=== PATIENT | female | born 1965 | race Caucasian/White ===

== ENCOUNTER 2016-09-14 13:47 | Inpatient (IN) | payer MEDICAID ==
[~2016-09-14] VITALS: Ht 172.7 cm; Wt 167.8 kg
[2016-09-14] MEDS ORDERED: ACETAMINOPHEN325 MG PO (14:07)
[2016-09-14] MEDS ORDERED: IBUPROFEN600 MG PO (14:07)
[2016-09-14] MEDS ORDERED: VENTOLIN HFA18 GM INH (14:07)
[2016-09-14 14:32] VITALS: BP 143/67; BMI 57.0
[2016-09-14 14:55] LABS: BASOPHILS 0.4 % (0.0-2.0); EOSINOPHILS 0.9 % (0-7); HEMATOCRIT 38.6 % (36.0-48.0); IMMATURE GRANULOCYTES 0.4 % (0-5); LYMPHOCYTES 17.9 % (15-50); MCH 28.8 pg (26.0-34.0); MCHC 31.1 g/dL (31.0-37.0); MCV 92.6 fL (80.0-100.0); NEUTROPHILS 69.4 % (40-80); PLATELET COUNT 268 10x3/uL (130-400); RBC 4.17 10x6/uL (4.00-5.40); RDW 15.1 % (11.5-14.5); WBC 8.1 10x3/uL (4.8-10.8)
[2016-09-14 15:09] LABS: CALC OSMOLALITY 271 mosm/kg (275-300); CALCIUM 8.6 mg/dL (8.5-10.1); CARBON DIOXIDE 30.4 mmol/L (21.0-32.0); CHLORIDE - SERUM 98 mmol/L (98-107); CREATININE - SERUM 0.7 mg/dL (0.6-1.3); GLUCOSE 106 mg/dL (74-106); POTASSIUM - SERUM 3.9 mmol/L (3.5-5.1); SODIUM 137 mmol/L (136-145); UREA NITROGEN 8 mg/dL (7-18); eGFR NON AFRICAN AMERICAN > 90 mL/min (90-120)
[2016-09-14 16:01] VITALS: BP 141/65
[2016-09-14 20:00] VITALS: BP 127/79
--- NOTE | 2016-09-14 23:38 | NUR ---
CIRCUIT BREAKER MECHANIC AT BEDSIDE FOR VS, NEEDS ADDRESSED AT THIS TIME. CALL LIGHT IN REACH. CONT TO MONITOR.
[2016-09-15] VITALS: BP 128/72
[2016-09-15 04:00] VITALS: BP 103/61
[2016-09-15 05:32] LABS: BASOPHILS 0.2 % (0.0-2.0); EOSINOPHILS 0 % (0-7); HEMATOCRIT 39.2 % (36.0-48.0); HEMOGLOBIN 12.3 g/dL (12-16); IMMATURE GRANULOCYTES 0.5 % (0-5); LYMPHOCYTES 13.7 % (15-50); MCH 28.9 pg (26.0-34.0); MCHC 31.4 g/dL (31.0-37.0); MEAN PLATELET VOLUME 10.2 fL (7.4-10.4); MONOCYTES 5.2 % (2-11); NEUTROPHILS 80.4 % (40-80); PLATELET COUNT 268 10x3/uL (130-400); RBC 4.26 10x6/uL (4.00-5.40); RDW 14.7 % (11.5-14.5)
[2016-09-15 06:05] LABS: WBC 5.8 10x3/uL (4.8-10.8)
[2016-09-15 06:06] LABS: CALC OSMOLALITY 280 mosm/kg (275-300); CALCIUM 9.1 mg/dL (8.5-10.1); CARBON DIOXIDE 30.4 mmol/L (21.0-32.0); CHLORIDE - SERUM 100 mmol/L (98-107); CREATININE - SERUM 0.7 mg/dL (0.6-1.3); GLUCOSE 144 mg/dL (74-106); MAGNESIUM - SERUM 2.3 mg/dL (1.8-2.4); PHOSPHOROUS 4.5 mg/dL (2.5-4.9); POTASSIUM - SERUM 4.2 mmol/L (3.5-5.1); PRO BNP 200 pg/mL (0-125); SODIUM 139 mmol/L (136-145); eGFR NON AFRICAN AMERICAN > 90 mL/min (90-120)
[2016-09-15 06:08] LABS: UREA NITROGEN 13 mg/dL (7-18)
[2016-09-15 07:52] VITALS: BP 122/57
--- NOTE | 2016-09-15 08:15 | NUR ---
received pt report. no other needs at this time. will continue plan of care no other needs.
[2016-09-15 11:34] VITALS: BP 114/52
--- NOTE | 2016-09-15 13:34 | NUR ---
PT IS ALERT. ASSESSMENT DONE PER FLOWSHEET. NO OTHER NEEDS AT THIS TIME. WILL CONTINUE TO MONITOR.
[2016-09-15 16:05] VITALS: BP 124/51
--- NOTE | 2016-09-15 19:40 | NUR ---
ASSESSMENT COMPLETE, A&O, SITTING UP ON SIDE OF BED, PT IV TO RIGHT AC WITH NS INFUSING AT KVO. PT DENIES PAIN OR NEEDS, BED LOW. CL IN REACH.
[2016-09-15 20:00] VITALS: BP 118/73
--- NOTE | 2016-09-15 20:43 | NUR ---
HS MEDS GIVEN, DENIES PAIN OR NEEDS, BED LOW, CL IN REACH.
--- NOTE | 2016-09-15 21:50 | NUR ---
PAGE OUT TO BIRGIT GREGG APN, WET PROCESS MILLER HEAD ASSISTANT FOR DR DUTTON, TO NOTIFY THAT PT IS C/O OF ITCHING AND REDNESS AFTER RECIEVEING ABX. CEFTAPIME.
--- NOTE | 2016-09-15 21:58 | NUR ---
SPOKE WITH MIGUEL GREGG, BENADRYL 25 ORDERED TO BE GIVEN IV Q6 PRN ITCHING, AND TO NOTIFY DR VALENTE OF REACTION WELL. PAGE OUT TO DR VALENTE.
--- NOTE | 2016-09-15 22:28 | NUR ---
BENADRYL 25 MG GIVEN IV FOR C/O ITCHING, HS SNACK GIVEN AT PT REQUEST. WILL CONT TO MONITOR.
--- NOTE | 2016-09-15 23:44 | NUR ---
CALL MANAGER AT BEDSIDE FOR VS, NEEDS ADDRESSED. CALL LIGHT IN REACH.CONT TO MONITOR.
[2016-09-16] VITALS: BP 132/69
[2016-09-16 04:00] VITALS: BP 132/78
[2016-09-16 05:01] LABS: BASOPHILS 0 % (0.0-2.0); EOSINOPHILS 0 % (0-7); HEMATOCRIT 39.8 % (36.0-48.0); HEMOGLOBIN 12.3 g/dL (12-16); IMMATURE GRANULOCYTES 0.3 % (0-5); LYMPHOCYTES 10.2 % (15-50); MCH 28.6 pg (26.0-34.0); MCHC 30.9 g/dL (31.0-37.0); MCV 92.6 fL (80.0-100.0); MEAN PLATELET VOLUME 10.3 fL (7.4-10.4); MONOCYTES 5.7 % (2-11); NEUTROPHILS 83.8 % (40-80); RDW 14.9 % (11.5-14.5)
[2016-09-16 05:42] LABS: CALCIUM 8.9 mg/dL (8.5-10.1); CARBON DIOXIDE 30.2 mmol/L (21.0-32.0); POTASSIUM - SERUM 4.2 mmol/L (3.5-5.1)
[2016-09-16 05:43] LABS: PLATELET COUNT 331 10x3/uL (130-400)
[2016-09-16 05:45] LABS: CREATININE - SERUM 0.9 mg/dL (0.6-1.3)
[2016-09-16 08:00] VITALS: BP 117/66
[2016-09-16 10:18] LABS: IMMUNOGLOBULIN E 594 IU/mL (0-100)
--- NOTE | 2016-09-16 11:59 | NUR ---
Patient Name: JUANPABLO AMEZCUA Admission Status: Urgent Accout number: [id number] Admission Date: 09-14-2016 : 1965 Admission Diagnosis: Attending: ANH Current LOS: 2 Anticipated DC Date: Planned Disposition: Home Primary Insurance: MEDICAID [place] Discharge Planning Comments: * Is the patient Alert and Oriented? Yes 0 * How many steps to enter\exit or inside your home? 3 0 * PCP DR. DUTTON 0 * [facility] [address] 0 * Preadmission Environment Home with Family 0 * ADLs Independent 0 * Equipment Nebulizer 0 * Other Equipment NO MEDICAL EQUIPMENT PROVIDER PREFERENCE 0 * List name and contact numbers for known caregivers / representatives who currently or will assist patient after discharge: SHI RODRIGUEZ, MOTHER, 0 * Community resources currently utilized None 0 * Please name any agencies selected above. NONE 0 * Additional services required to return to the preadmission environment? No 0 * Can the patient safely return to the preadmission environment? Yes 0 * Has this patient been hospitalized within the prior 30 days at any hospital? No 0 CM MET WITH PT IN ROOM TO DISCUSS DISCHARGE PLANNING AND NEEDS. PT REPORTS LIVING AT HOME INDEPENDENTLY WITH HER MOTHER AND ADULT CHILD. 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 PT HAS A NEBULIZER WITH NO MEDICAL EQUIPMENT PROVIDER PREFERENCE. PT HAS NO OUTSIDE SERVICES ASSISTING IN THE HOME. CM DISCUSSED AVAILABILITY OF HOME HEALTH, REHAB SERVICES AND MEDICAL EQUIPMENT. PT DENIES DISCHARGE NEEDS, REPORTS HER MOTHER WILL PICK HER UP FOR DISCHARGE HOME. PT PLANS TO DISCHARGE HOME WITH FAMILY, DENIES DISCHARGE NEEDS AT THIS TIME. CM TO FOLLOW AND ASSIST NEEDED. Binder Cutter Hand: Moses Menon
[2016-09-16 12:00] VITALS: BP 139/68
[2016-09-16 13:14] LABS: IMMUNOGLOBULIN A 233 mg/dL (87-352); IMMUNOGLOBULIN G 1562 mg/dL (700-1600)
[2016-09-16 16:00] VITALS: BP 118/58
--- NOTE | 2016-09-16 16:21 | NUR ---
ALERT AND ORIENTED X4. COMPLAINS OF ARTHRITIS PAIN. INITIATE PAIN MANAGEMENT WITH MOTRIN ORDERED. FAMILY AT BEDSIDE. DENIES SOB. IV ANTIBIOTICS INFUSING ORDERED. SINUS TACH 101bpm ON TELEMETRY. CONTINUE PLAN OF CARE AND SAFETY PRECAUTIONS.
--- NOTE | 2016-09-16 20:52 | NUR ---
HS MEDS GIVEN, DENIES PAIN OR NEEDS, BED LOW, CL IN REACH.
[2016-09-16 21:56] VITALS: BP 118/76
--- NOTE | 2016-09-17 00:12 | NUR ---
MANAGER MATERIAL AT BEDSIDE TO OBTAIN VITALS, CALL LIGHT IN REACH. WILL CONTINUE WITH PLAN OF CARE.
[2016-09-17 01:17] VITALS: BP 128/63
[2016-09-17 04:59] LABS: BASOPHILS 0.2 % (0.0-2.0); EOSINOPHILS 0 % (0-7); HEMATOCRIT 39.5 % (36.0-48.0); IMMATURE GRANULOCYTES 0.3 % (0-5); LYMPHOCYTES 12.5 % (15-50); MCH 28.3 pg (26.0-34.0); MCHC 30.4 g/dL (31.0-37.0); MCV 93.2 fL (80.0-100.0); MEAN PLATELET VOLUME 10.1 fL (7.4-10.4); MONOCYTES 5.6 % (2-11); NEUTROPHILS 81.4 % (40-80); PLATELET COUNT 308 10x3/uL (130-400); RBC 4.24 10x6/uL (4.00-5.40)
[2016-09-17 05:07] LABS: WBC 6.6 10x3/uL (4.8-10.8)
[2016-09-17 05:09] LABS: ANION GAP 8.4 mmol/L (8-16); CALCIUM 8.4 mg/dL (8.5-10.1); CREATININE - SERUM 0.9 mg/dL (0.6-1.3); MAGNESIUM - SERUM 2.2 mg/dL (1.8-2.4); PHOSPHOROUS 4.7 mg/dL (2.5-4.9); POTASSIUM - SERUM 4.4 mmol/L (3.5-5.1)
[2016-09-17 05:11] VITALS: BP 147/66
--- NOTE | 2016-09-17 06:53 | NUR ---
IV TO RIGHT AC LEAKING, IV CATH REMOVED, TIP INTACT. COVERED INSERTION SITE WITH 2X2 AND TAPE.
[2016-09-17 07:39] VITALS: BP 121/63
--- NOTE | 2016-09-17 07:50 | NUR ---
PATIENT IS AWAKE AND ALERT. SHE IS SITTING UPRIGHT IN HER BED. HER IV HAS BEEN REMOVED DUE TO LEAKING. SHE HAS NURSING STUDENTS TODAY AND SHE WANTS TO REPLACE WHEN INSTRUCTER IS AVAILABLE TO ASSIST. PATIENT IS OK WITH THIS.
--- NOTE | 2016-09-17 09:30 | NUR ---
22G IV PLACED IN LEFT FA ON 2ND ATTEMPT. PT TOLERATED WELL. PIPERACILLIN RECONNECTED TO INFUSE AT 12.5ML/HR. WILL HOLD VANCOMYCIN UNTIL CURRENT INFUSION IS COMPLETE.
[2016-09-17 12:11] VITALS: BP 130/75
--- NOTE | 2016-09-17 19:45 | NUR ---
INTRODUCED MYSELF TO PT PRIMARY RN FOR [facility]. PT IS ALERT AND ORIENTED RESTING QUIETLY IN BED. SHIFT ASSESSMENT COMPLETED. PT DENIES ANY CURRENT NEEDS AT THIS TIME. CL IN REACH, BED IN LOWEST, SIDE RAILS X2. WILL CPOC AND PULL MEDS FOR NIGHTLY MED PASS SHORTLY.
--- NOTE | 2016-09-17 19:48 | NUR ---
PATIENT HAS BEEN WITHOUT COMPLAINTS OF PAIN THROUGHOUT THE DAY. SHE HAS RED RASH UNDER EACH BREAST. SHE STATES THAT SHE HAS NOT HAD A SHOWER IN 6 DAYS. SHE HAS BEEN DOING A BASIN CLEAN UP. ENCOURAGED HER TO BATHE. SHE STATE SHTAT SHE WILL AFTER HER ABTS ARE COMPLETED. REPORTED THIS TO ONCOMING NURSE.
[2016-09-17 20:00] VITALS: BP 111/63
[2016-09-18] VITALS: BP 108/63
--- NOTE | 2016-09-18 00:52 | NUR ---
PT RESTING QUIETLY IN ROOM WATCHING TV. DENIES ANY CURREN PAIN OR NEEDS. CL IN REACH. WILL CPOC.
[2016-09-18 04:00] VITALS: BP 139/85
[2016-09-18 06:20] LABS: BASOPHILS 0.2 % (0.0-2.0); EOSINOPHILS 0 % (0-7); HEMATOCRIT 40.9 % (36.0-48.0); HEMOGLOBIN 12.5 g/dL (12-16); IMMATURE GRANULOCYTES 0.3 % (0-5); LYMPHOCYTES 18.2 % (15-50); MCH 28.5 pg (26.0-34.0); MCHC 30.6 g/dL (31.0-37.0); MCV 93.2 fL (80.0-100.0); MEAN PLATELET VOLUME 9.7 fL (7.4-10.4); NEUTROPHILS 73.3 % (40-80); PLATELET COUNT 303 10x3/uL (130-400); RBC 4.39 10x6/uL (4.00-5.40); RDW 14.9 % (11.5-14.5); WBC 6.3 10x3/uL (4.8-10.8)
[2016-09-18 06:33] LABS: CALCIUM 8.9 mg/dL (8.5-10.1); CARBON DIOXIDE 34.8 mmol/L (21.0-32.0); CREATININE - SERUM 0.9 mg/dL (0.6-1.3); POTASSIUM - SERUM 3.8 mmol/L (3.5-5.1)
[2016-09-18 08:07] VITALS: BP 139/65
--- NOTE | 2016-09-18 10:46 | NUR ---
UP IN CHAIR, DENIES NEEDS AT THIS TIME. CALL LIGHT IN REACH, WILL CONTINUE WITH PLAN OF CARE.
[2016-09-18 11:23] VITALS: BP 114/53
--- NOTE | 2016-09-18 14:49 | NUR ---
SCHEDULED MEDICATIONS ADMINISTERED AT THIS TIME. DENIES NEEDS AT THIS TIME. CALL LIGHT IN REACH, WILL CONTINUE WITH PLAN OF CARE.
[2016-09-18 15:59] VITALS: BP 131/63
--- NOTE | 2016-09-18 16:53 | NUR ---
SCHEDULED MEDICATIONS ADMINISTERED AT THIS TIME. DENIES NEEDS AT THIS TIME. EATING DINNER WITHOUT DIFFICULTY. CALL LIGHT IN REACH, WILL CONTINUE WITH PLAN OF CARE.
--- NOTE | 2016-09-18 20:00 | NUR ---
INTRODUCED MYSELF TO PT PRIMARY RN FOR [facility]. PT IS ALERT AND ORIENTED RESTING QUIETLY IN BED. SHIFT ASSESSMENT COMPLETED. PT DENIES ANY CURRENT NEEDS AT THIS TIME. CL IN REACH, BED IN LOWEST, SIDE RAILS X2. WILL CPOC AND PULL MEDS FOR NIGHTLY MED PASS SHORTLY.
[2016-09-18 20:31] VITALS: BP 123/79
[2016-09-19 00:15] VITALS: BP 135/68
--- NOTE | 2016-09-19 01:30 | NUR ---
PT LYING BACK IN BED RESTING QUIETLY WITH EYES CLOSED. RR NONLABORED WITH NC @3L IN PLACE. NO S/S OF DISTRESS OR ANY CURRENT NEEDS NOTED AT THIS TIME. CL IN REACH, BED IN LOWEST, SIDE RAILS X2. WILL CTM.
[2016-09-19 04:30] VITALS: BP 126/75
[2016-09-19 05:45] LABS: BASOPHILS 0.1 % (0.0-2.0); EOSINOPHILS 0 % (0-7); HEMATOCRIT 39.7 % (36.0-48.0); IMMATURE GRANULOCYTES 0.5 % (0-5); LYMPHOCYTES 17.4 % (15-50); MCH 28.4 pg (26.0-34.0); MCHC 30.2 g/dL (31.0-37.0); MCV 93.9 fL (80.0-100.0); MONOCYTES 6.3 % (2-11); NEUTROPHILS 75.7 % (40-80); PLATELET COUNT 300 10x3/uL (130-400); RBC 4.23 10x6/uL (4.00-5.40); RDW 14.8 % (11.5-14.5)
--- NOTE | 2016-09-19 06:25 | NUR ---
PROVIDED PT WITH A CUP OF COFFEE REQUESTED. ALONG WITH GLOBE CLEANER SCHEDULED MEDICATIONS. PT IS SITTING UP IN BED RESTING AND STATES SHE IS COMFORTABLE. L.FA PIV NOTED TO BE SLIGHTLY TENDER HOWEVER IV HAS GREAT BLOOD RETURN AND ISNT INFILTRATED. PT PREFERS NOT TO HAVE A NEW ONE UNLESS THAT ONE INFILTRATES. PT DENIES ANY FURTHER NEEDS AT THIS TIME. CL IN REACH, BED IN LOWEST, SIDE RAILS X2. WILL CPOC.
[2016-09-19 06:38] LABS: CALC OSMOLALITY 275 mosm/kg (275-300); CALCIUM 8.9 mg/dL (8.5-10.1); CARBON DIOXIDE 33.1 mmol/L (21.0-32.0); CHLORIDE - SERUM 96 mmol/L (98-107); CREATININE - SERUM 0.8 mg/dL (0.6-1.3); GLUCOSE 128 mg/dL (74-106); POTASSIUM - SERUM 4.1 mmol/L (3.5-5.1); SODIUM 136 mmol/L (136-145); UREA NITROGEN 19 mg/dL (7-18); eGFR NON AFRICAN AMERICAN 80 mL/min (90-120)
--- NOTE | 2016-09-19 07:10 | NUR ---
RECEIVED REPORT. ASSUMED CARE OF PATIENT. CALL LIGHT WITHIN REACH. PATIENT SITTING UP IN BED. STUDENT NURSE AT BEDSIDE. PATIENT DENIES NEEDS AT THIS TIME. RESP EVEN AND UNLABORED. SCATTER WHEEZES THROUGHT POSTERIOR LUNG WONG. DENIES NEEDS AT THIS TIME. NO DISTRESS.
[2016-09-19 07:55] VITALS: BP 129/75
--- NOTE | 2016-09-19 08:53 | NUR ---
22 GAUGE IV SITED TO RIGHT HAND X 1 STICK AT THIS TIME. GOOD BLOOD RETURN, EASY FLUSH. LAB AT BEDSIDE. BLOOD NEEDED FOR LAB ABLE TO BE DRAWN FROM IV SITE. TAPED, DATED AND SECURED. PATIENT RECEIVING ANTIBIOTICS AT THIS TIME. TOLERATED IV PLACEMENT WELL. 22 GAUGE DISLODGED FROM LEFT FOREARM PATIENT MOVED ARM ACROSS BED. CATHETER TIP IN TACT. NO BLEEDING FROM SITE. 2X2 GAUZE APPLIED AND SECURED WITH TAPE. NO DISTRESS.
--- NOTE | 2016-09-19 11:30 | NUR ---
PATIENT SITTING UP IN BED CONSUMING NOON MEAL. CALL LIGHT WITHIN REACH. DENIES NEEDS AT THIS TIME. NO DISTRESS.
[2016-09-19 11:47] VITALS: BP 135/81
[2016-09-19 15:30] VITALS: BP 141/71
--- NOTE | 2016-09-19 15:53 | NUR ---
RESTING WELL IN BED WITH EYES OPEN. APPLE JUICE PROVIDED UPON REQUEST. NO DISTRESS. CALL LIGHT WITHIN REACH.
--- NOTE | 2016-09-19 19:00 | NUR ---
REPORT GIVEN TO ONCOMING NURSE. NO DISTRESS.
[2016-09-19 20:26] VITALS: BP 126/67
--- NOTE | 2016-09-20 00:15 | NUR ---
CHANGED OUT FEEDING TUBE
[2016-09-20 00:35] VITALS: BP 139/72
--- NOTE | 2016-09-20 02:17 | NUR ---
ASSESSMENT COMPLETE, PT SLEEPING, CALL LIGHT IN REACH
[2016-09-20 04:17] VITALS: BP 135/79
[2016-09-20 05:05] LABS: BASOPHILS 0.1 % (0.0-2.0); EOSINOPHILS 0 % (0-7); HEMATOCRIT 40.3 % (36.0-48.0); HEMOGLOBIN 12.3 g/dL (12-16); IMMATURE GRANULOCYTES 0.5 % (0-5); MCH 28.5 pg (26.0-34.0); MCHC 30.5 g/dL (31.0-37.0); MCV 93.3 fL (80.0-100.0); MEAN PLATELET VOLUME 9.9 fL (7.4-10.4); MONOCYTES 4.3 % (2-11); NEUTROPHILS 80.1 % (40-80); PLATELET COUNT 306 10x3/uL (130-400); RBC 4.32 10x6/uL (4.00-5.40); RDW 14.6 % (11.5-14.5)
[2016-09-20 05:23] LABS: ANION GAP 7.1 mmol/L (8-16); CALCIUM 9.2 mg/dL (8.5-10.1); CARBON DIOXIDE 36.3 mmol/L (21.0-32.0); CREATININE - SERUM 0.9 mg/dL (0.6-1.3); POTASSIUM - SERUM 4.4 mmol/L (3.5-5.1)
--- NOTE | 2016-09-20 07:05 | NUR ---
RECEIVED REPORT. ASSUMED CARE OF PATIENT. PATIENT SITTING UP IN BED. ALERT/ORIENTED. RESP EVEN AND UNLABORED. CALL LIGHT WITHIN REACH. REQUESTING COFFEE AT THIS TIME. IV ANTIBIOTICS INFUSING. NO DISTRESS.
--- NOTE | 2016-09-20 07:20 | NUR ---
COFFEE PROVIDED UPON REQUEST. NO DISTRESS.
[2016-09-20 07:41] VITALS: BP 135/58
--- NOTE | 2016-09-20 10:00 | NUR ---
PATIENT SITTING UP IN BED. DENIES NEEDS. CALL LIGHT WITHIN REACH. NO DISTRESS.
[2016-09-20 11:39] VITALS: BP 145/74
--- NOTE | 2016-09-20 14:58 | NUR ---
ALL IV TUBING CHANGED AT THIS TIME. NEW LABELS AND SWAB CAPS INTACT.
[2016-09-20 15:21] VITALS: BP 138/72
--- NOTE | 2016-09-20 16:28 | NUR ---
SITTING IN BED. NEWSPAPER PROVIDED. DENIES NEEDS AT THIS TIME. NO DISTRESS.
--- NOTE | 2016-09-20 18:05 | NUR ---
PATIENT SITTING UP IN BED WITH ATTENTION TOWARD TELEVISION. CALL LIGHT WITHIN REACH. DENIES NEEDS AT THIS TIME. NO DISTRESS.
[2016-09-20 20:30] VITALS: BP 117/64
--- NOTE | 2016-09-20 20:57 | NUR ---
PT AWAKE, ALERT, ORIENTED. PT DENIES ANY ACUTE NEEDS AT THIS TIME. WILL CONTINUE TO MONITOR CLOSELY.
[2016-09-21 00:30] VITALS: BP 128/62
[2016-09-21 04:45] VITALS: BP 118/60
[2016-09-21 06:37] LABS: ERYTHROCYTE SEDIMENTATION RATE 18 mm/hr (0-30)
--- NOTE | 2016-09-21 07:47 | NUR ---
AM ROUNDING- PT LAYING IN BED ON BACK WITH EYES OPEN RESTING. ON MONITOR SHOWING SR, HR 81. IV SEEN TO RIGHT HAND WITH D5 1/2 NS RUNNING AT KVO (15). ON EP, WILL CHECK AM LABS AND CONTINUE TO TX PER PROTOCOL. ON O2 AT 3L VIA HUMIDIFIED O2. NO NEED AT CURRENT TIME. WILL CONTINUE TO MONITOR AND CONTINUE WITH PLAN OF CARE.
[2016-09-21 08:00] VITALS: BP 123/67
--- NOTE | 2016-09-21 10:45 | NUR ---
IV access-22 gauge IV catheter placed in left hand. Hue Burciaga RN
[2016-09-21 12:00] VITALS: BP 130/63
--- NOTE | 2016-09-21 14:15 | NUR ---
IN REPORT WINDOW CASER NURSE CARYN INFORMED ME OF PT HAVING REDNESS WHERE IV CATHETER IS. UPON DOING MORNING MEDICATION PASS, PTS IV SITE WAS RED AND PT C/O PAIN WITH I TOUCHED IT. CALLED SADIQ MEEKS, VASCULAR ACCESS NURSE TO SEE ABOUT RESITING PT. SADIQ SAID SHE WOULD BE ON UNIT SHORTLY TO LOOK. 1045- SADIQ MEEKS RESITED PT WITH 22G IV CATHETER TO LEFT HAND. IV ANTIBIOTICS STARTED ORDERED.
[2016-09-21 16:00] VITALS: BP 112/61
--- NOTE | 2016-09-21 19:19 | NUR ---
PM ROUNDING- PT SITTING UP IN BED WITH EYES OPEN RESTING. IV SEEN TO LEFT HAND WITH ANTIBIOTICS CURRENTLY INFUSING. ON 02 AT 3L VIA NC WITH HUMIDIFIER. ON EP. ON MONITOR SHOWING SR, HR 93. NO NEED AT CURRENT TIME. WILL PASS THIS ALONG IN REPORT TO SAFE DEPOSIT ATTENDANT NURSE WHEN NURSE COMES IN AT 1000.
[2016-09-21 20:00] VITALS: BP 113/76
[2016-09-22] VITALS: BP 130/77
--- NOTE | 2016-09-22 01:00 | NUR ---
REPORT RECEIVED AND CARE ASSUMED. NO VOICED NEEDS. SEE SHIFT ASSESSMENT FLOW SHEET FOR FURTHER DETAILS. WILL MONITOR AND CONTINUE PLAN OF CARE.
[2016-09-22 04:00] VITALS: BP 114/85
[2016-09-22 08:11] VITALS: BP 140/85
--- NOTE | 2016-09-22 11:06 | NUR ---
PT SITTING UP IN BED WITH EYES OPEN RESTING. ON MONITOR SHOWING SR, HR 92. IV SEEN TO RIGHT HAND THAT HAS ANTIBIOTICS CURRENTLY RUNNING. ON 02 AT 3L VIA NC WITH HUMIDIFIER. ON EP, WILL CHECK AM LABS AND TX PER PROTOCOL. PT IS UP AD CONRAD. PT STATES SHE GETS TO GO HOME TODAY. POWER MONIQUE, NATURAL RESOURCES ENGINEER IS DOING DAILY SHIFT ASSESSMENT. WILL DO CARE PLAN AND TEACHING. WILL CONTINUE TO MONITOR AND CONTINUE WITH PLAN OF CARE.
[2016-09-22 11:58] VITALS: BP 139/84
[2016-09-22] MEDS ORDERED: SINGULAIR10 MG PO (12:09)
[2016-09-22] MEDS ORDERED: CELEXA20 MG PO (12:09)
[2016-09-22] MEDS ORDERED: LASIX40 MG PO ×2 (12:09→12:11)
[2016-09-22] MEDS ORDERED: TESSALON PERLE100 MG PO (12:09)
[2016-09-22] MEDS ORDERED: MUCINEX DM ER1 EAC1 PO (12:09)
[2016-09-22] MEDS ORDERED: SYMBICORT 16010.2 GM INH (12:11)
[2016-09-22] MEDS ORDERED: K-DUR20 MEQ PO (12:11)
[2016-09-22] MEDS ORDERED: PREDNISONE10 MG PO (12:22)
--- NOTE | 2016-09-22 12:58 | NUR ---
TRES GREGG FIRST BEATER ON UNIT. GAVE ME NEW ORDERS TO PUT IN ABGS FOR PT ON ROOM AIR. WILL DO ORDERED.
[2016-09-22 13:11] VITALS: Ht 172.7 cm; Wt 167.8 kg
--- NOTE | 2016-09-22 13:37 | NUR ---
TURNED PTS 02 DOWN TO 2L VIA NC. PTS 02 SAT IS 90%. PT STATES SHE DOES NOT FEEL DISTRESSED. INFORMED TRES GREGG NP OF THIS. WILL CONTINUE TO MONITOR.
--- NOTE | 2016-09-22 13:44 | NUR ---
TRES GREGG NP STATED TO HAVE PT WALK AROUND NURSES STATION ON ROOM AIR AND THEN HAVE RESPIRATORY DO ABG ON PT AFTERWARDS. WILL CALL [facility] AND INFORM THEM OF THIS AND PUT ORDERS IN ORDERED BY TRES GREGG NP.
--- NOTE | 2016-09-22 13:48 | NUR ---
PAGEValentin AVILA WITH RESPIRATORY TO INFORM HER TO LET ME KNOW WHEN I NEED TO WALK PT AROUND NURSES STATION PRIOR TO HER DOING ABG ON PT ORDERED. AWAITNG CALLBACK.
--- NOTE | 2016-09-22 13:56 | NUR ---
WALKED PT AROUND NURSES STATION ON ROOM ORDERED. PT HAD SOME SOB DURING WALK. RESP IS IN ROOM NOW DOING ABG ON PT.
--- NOTE | 2016-09-22 15:05 | NUR ---
TWO OF THE DISCHARGE MEDICATIONS WERE CALLED TO SAI/ALISA ORTEZ NO PRINTED PRESCRIPTIONS WERE PROVIDED. SINGULAIR AND BENZONATATE WERE CALLED IN. SPOKE WITH CHACHO/PHARMACIST
--- NOTE | 2016-09-22 15:23 | NUR ---
D/C INSTRUCTONS EXPLAINED TO PT. D/C PAPERWORK SIGNED AND DATED AND PLACED IN CHART. IV TO LEFT HAND REMOVED WITH CATH TIP INTACT. TOLERATED WELL. AWAITING PT TO GET BELONGINGS TOGETHER AND MOTHER TO GET HERE TO TAKE HER HOME.
--- NOTE | 2016-09-22 15:45 | NUR ---
PT D/C VIA WHEELCHAIR HOME.
--- NOTE | 2016-10-06 08:17 | EC ---
PATIENT:JUANPABLO AMEZCUA DATE OF SERVICE: 09/14/16 SEX: F MEDICAL RECORD: [id number] DATE OF : [birth year] LOCATION:D. D.211 AGE OF PATIENT: 51 ADMISSION DATE: 09/14/16 REFERRING PHYSICIAN: INTERPRETING PHYSICIAN: QUAN SARMIENTO M.D. ECHOCARDIOGRAM REPORT ECHO CHARGES 4 ECHO COMPLETE CLINICAL DIAGNOSIS: SOB FAMILY HX OF CAD ECHOCARDIOGRAPHIC MEASUREMENTS (adult normal given) AC root (d.<3.7cm) 3.8 LV Septum d (<1.2 cm> 1.3 Valve Excursion 1.6 LV Septum (systole) 1.4 Left Atria (s.<4.0cm> 4.5 LVPW d(<1.2cm) 1.6 RV (d.<2.3cm) 3.2 LVPW (sytole) 2.2 LV diastole(<5.6CM) 6.2 MV E-F(>70mm/sec) LV systole 4.5 LVOT Diameter 1.8 MV exc.(>10mm) 1.9 Est.ejection fraction (50-75%) Pericardial Effusion N DOPPLER: LVIT A 81.0 E 103 LA RVSP 23 LVOT 143 AOP1/2T Asc. Ao 191 RVOT 110 RA PA 163 AV Gradient Peak 14.50 AV Mean 7.94 AV Area 2.0 MV Gradient Peak 8.42 MV Mean 2.72 MV Area COMMENTS: Resident Care Spec: Kimmie NULL Lithoplate Maker:2 Dr. Sarmiento TAPE# PACS DATE OF SERVICE: 09/15/2016 Echocardiogram Report REFERRING PHYSICIAN: Judy Kilpatrick MD INDICATION: Dyspnea. DESCRIPTION: Left ventricle demonstrates left ventricular hypertrophy. No wall motion abnormalities noted. Estimated ejection fraction is 55%. Mitral valve ECHOCARDIOGRAM REPORT [id number] JUANPABLO AMEZCUA is structurally normal. There is mild regurgitation seen. Left atrium is mildly dilated. The aortic valve leaflets are slightly thickened. There is no stenosis or regurgitation seen. Right ventricle is mildly dilated. Tricuspid valve is structurally normal. There is mild regurgitation noted. Right atrium is mildly dilated. There is no pericardial effusion seen. IMPRESSION: 1. Left ventricular hypertrophy with preserved ejection fraction of 55%. 2. Mild mitral regurgitation. 3. Aortic valve sclerosis without stenosis. 4. Mild tricuspid regurgitation. TRANSINT:[id number] Voice Confirmation ID: [id number] DOCUMENT ID: [id number] QUAN SARMIENTO M.D. at 0817 CC: [id number] DICTATION DATE: 09/15/16 1543 GATE ATTENDANT: 09/15/16 2304 DIS IN 09/22/16 [place] [id number] [place] [id number]
== END 2016-09-22 15:46 | disposition home or self-care (01) | DRG 194 ==
LOC: D.M2 13:47 → D.SDCHOLD 09-16 10:52 → D.M2 09-22 15:46
PROVIDERS: Emergency Medicine; Internal Medicine Pulmonary Disease; ADMIT Emergency Medicine
DX: J18.9 Pneumonia, unspecified organism (principal); J45.901 Unspecified asthma with (acute) exacerbation; I50.30 Unspecified diastolic (congestive) heart failure; I08.1 Rheumatic disorders of both mitral and tricuspid valves; R09.1 Pleurisy; Z87.891 Personal history of nicotine dependence

== ENCOUNTER 2016-10-15 09:20 | Inpatient (IN) | payer MEDICAID ==
[~2016-10-15] VITALS: Ht 172.7 cm; Wt 170.6 kg
[~2016-10-15 09:20] MED LIST: ACETAMINOPHEN325 MG PO; CELEXA20 MG PO; IBUPROFEN600 MG PO; K-DUR20 MEQ PO; LASIX40 MG PO; MUCINEX DM ER1 EAC1 PO; PREDNISONE10 MG PO; SINGULAIR10 MG PO; SYMBICORT 16010.2 GM INH; TESSALON PERLE100 MG PO; VENTOLIN HFA18 GM INH
[2016-10-15 10:40] LABS: APPEARANCE HAZY (CLEAR); BILIRUBIN NEGATIVE (NEGATIVE); COLOR DK YELLOW (YELLOW); GLUCOSE NEGATIVE (NEGATIVE); KETONE NEGATIVE (NEGATIVE); LEUKOCYTE ESTERASE TRACE (NEGATIVE); NITRITE NEGATIVE (NEGATIVE); PROTEIN 1+ mg/dL (NEGATIVE); SPECIFIC GRAVITY 1.015 (1.005-1.020); UROBILINOGEN NORMAL (NORMAL)
[2016-10-15 10:41] LABS: WHITE CELLS - URINE 0-5 /hpf (0-5)
[2016-10-15 10:42] LABS: BACTERIA MANY /hpf (NONE SEEN); EPITHELIAL CELLS OCC /hpf (0-5); MUCUS >1+ /lpf (NONE SEEN); RED CELLS - URINE 0-5 /hpf (0-5); SPERMATOZOA NONE SEEN /hpf (NONE SEEN); YEAST NONE SEEN /hpf (NONE SEEN)
[2016-10-15 10:43] LABS: AMORPHOUS SEDIMENT >1+ /lpf (NONE SEEN); GRANULAR CAST NONE SEEN /lpf (NONE SEEN); HYALINE CAST 0-5 /lpf (NONE SEEN); RED CELL CAST NONE SEEN /lpf (NONE SEEN); WAXY CAST NONE SEEN /lpf (NONE SEEN)
[2016-10-15 10:51] LABS: ALBUMIN 3.1 g/dL (3.4-5.0); ALKALINE PHOSPHATASE 65 U/L (46-116); ALT (SGPT) 28 U/L (10-68); BILIRUBIN - TOTAL 0.32 mg/dL (0.2-1.3); CALC OSMOLALITY 275 mosm/kg (275-300); CALCIUM 8.5 mg/dL (8.5-10.1); CARBON DIOXIDE 33.2 mmol/L (21.0-32.0); CHLORIDE - SERUM 100 mmol/L (98-107); CREATININE - SERUM 0.7 mg/dL (0.6-1.3); GLUCOSE 114 mg/dL (74-106); POTASSIUM - SERUM 4.4 mmol/L (3.5-5.1); PROTEIN - SERUM 7.4 g/dL (6.4-8.2); SODIUM 138 mmol/L (136-145); UREA NITROGEN 9 mg/dL (7-18); eGFR NON AFRICAN AMERICAN > 90 mL/min (90-120)
[2016-10-15 10:59] LABS: PRO BNP 515 pg/mL (0-125)
[2016-10-15 11:10] LABS: BASOPHILS 0.2 % (0.0-2.0); EOSINOPHILS 1.8 % (0-7); HEMATOCRIT 38.3 % (36.0-48.0); HEMOGLOBIN 11.5 g/dL (12-16); IMMATURE GRANULOCYTES 1.1 % (0-5); LYMPHOCYTES 21.5 % (15-50); MCV 93.4 fL (80.0-100.0); MEAN PLATELET VOLUME 9.8 fL (7.4-10.4); MONOCYTES 6.9 % (2-11); NEUTROPHILS 68.5 % (40-80); PLATELET COUNT 344 10x3/uL (130-400)
[2016-10-15] MEDS ORDERED: PHENERGAN25 M1 PO (14:58)
[2016-10-15] MEDS ORDERED: MACROBID100 MG PO (14:58)
[2016-10-15 15:05] VITALS: BP 126/63; BMI 58.0
--- NOTE | 2016-10-15 15:16 | NUR ---
PATIENT ARRIVED FROM ER VIA STRETCHER. SOB O2 ON AT 3 LITERS. ASSESSMENT DONE. 2+EDEMA ON JOE FEET. REDDENED AREAS NOTED UNDER EACH BREASTS. MONITOR ON WITH RATE OF 97 NSR. WILL CONTINUE TO MONITOR.
--- NOTE | 2016-10-15 19:02 | NUR ---
LYING QUIETLY WITH EYES CLOSED. TELEMERTY SHOWING SR. WILL MONITOR
--- NOTE | 2016-10-15 21:23 | NUR ---
PT REPORTS A HEADACHE, RATES @ 6/10 ON PAIN SCALE. TYLENOL 650 MG PO GIVEN. WILL CONT TO MONITOR.
[2016-10-15 21:33] VITALS: BP 127/53
[2016-10-16 01:06] VITALS: BP 125/66
[2016-10-16 05:24] VITALS: BP 116/59
[2016-10-16 05:39] LABS: BASOPHILS 0.3 % (0.0-2.0); EOSINOPHILS 2.9 % (0-7); HEMATOCRIT 39.1 % (36.0-48.0); HEMOGLOBIN 11.8 g/dL (12-16); IMMATURE GRANULOCYTES 0.6 % (0-5); MCHC 30.2 g/dL (31.0-37.0); MCV 92.9 fL (80.0-100.0); MEAN PLATELET VOLUME 9.9 fL (7.4-10.4); MONOCYTES 7.9 % (2-11); NEUTROPHILS 60.3 % (40-80); PLATELET COUNT 295 10x3/uL (130-400); RBC 4.21 10x6/uL (4.00-5.40); RDW 15.2 % (11.5-14.5)
[2016-10-16 05:58] LABS: ALBUMIN 2.9 g/dL (3.4-5.0); ALKALINE PHOSPHATASE 64 U/L (46-116); ALT (SGPT) 29 U/L (10-68); CALC OSMOLALITY 274 mosm/kg (275-300); CARBON DIOXIDE 33.7 mmol/L (21.0-32.0); CHLORIDE - SERUM 100 mmol/L (98-107); CREATININE - SERUM 0.8 mg/dL (0.6-1.3); GLUCOSE 117 mg/dL (74-106); PROTEIN - SERUM 7.1 g/dL (6.4-8.2); SODIUM 138 mmol/L (136-145); UREA NITROGEN 8 mg/dL (7-18); eGFR NON AFRICAN AMERICAN 80 mL/min (90-120)
[2016-10-16 05:59] LABS: POTASSIUM - SERUM 3.6 mmol/L (3.5-5.1)
--- NOTE | 2016-10-16 07:37 | NUR ---
ASSESSMENT COMPLETED. TELEMERTY SHOWS SR. RIGHT AC SL. C/O HEADACHE. TYLENOL GIVEN FOR RELIEF
--- NOTE | 2016-10-16 11:44 | NUR ---
C/O NAUSEA. ZOFRAN GIVEN. DENIES ANY OTHER NEEDS. SR UP WITH CALL LIGHT IN REACH
[2016-10-16 12:00] VITALS: BP 126/56
[2016-10-16 13:05] VITALS: Ht 172.7 cm; Wt 170.6 kg
[2016-10-16 16:00] VITALS: BP 122/60
--- NOTE | 2016-10-16 17:44 | NUR ---
UP ON SIDE OF BED. DENIES ANY NEEDS. CALL LIGHT IN REACH WITH SR UP
[2016-10-16 20:21] VITALS: BP 125/68
--- NOTE | 2016-10-16 21:57 | NUR ---
PT RESTING WITH EYES CLOSED. ROUSES UP TO VERBAL STIMULI. C/O HEADACHE. STATES FIOROCET GIVEN EARLIER DID NOT HELP BUT FOR A SHORT WHILE. HS MEDS GIVEN. LOVENOX ADMINISTERED TO ABDOMEN. MILD SOB WITH O2 @ 2L/NC. SALINE LOCK TO RIGHT A/C. SEE ASSESSMENT. CPOC. CALL LIGHT IN REACH.
[2016-10-17 00:31] VITALS: BP 125/59
--- NOTE | 2016-10-17 02:07 | NUR ---
RESTING IN BED WITH NO DISTRESS. EYES CLOSED. RESPS EVEN/NONLABORED. CPOC. CALL LIGHT IN REACH.
--- NOTE | 2016-10-17 03:14 | NUR ---
PT NAUSEATED AND C/O HEADACHE/UPSET STOMACH. MEDICATED WITH IV ZOFRAN. ALSO GAVE HER TYLENOL AND FIORECET FOR HER HEADACHE AND HER AM PROTONIX TO SEE IF IT WILL HELP SETTLE HER STOMACH. WILL MONITOR.
[2016-10-17 04:03] VITALS: BP 129/66
[2016-10-17 06:05] LABS: BASOPHILS 0.2 % (0.0-2.0); EOSINOPHILS 2.8 % (0-7); HEMOGLOBIN 11.2 g/dL (12-16); IMMATURE GRANULOCYTES 0.7 % (0-5); MCH 28.1 pg (26.0-34.0); MCHC 30.3 g/dL (31.0-37.0); MCV 92.7 fL (80.0-100.0); MEAN PLATELET VOLUME 9.6 fL (7.4-10.4); NEUTROPHILS 72.3 % (40-80); PLATELET COUNT 301 10x3/uL (130-400); RBC 3.99 10x6/uL (4.00-5.40); RDW 15.1 % (11.5-14.5); WBC 8.2 10x3/uL (4.8-10.8)
[2016-10-17 06:25] LABS: ALKALINE PHOSPHATASE 65 U/L (46-116); ALT (SGPT) 29 U/L (10-68); BILIRUBIN - TOTAL 0.29 mg/dL (0.2-1.3); CALC OSMOLALITY 269 mosm/kg (275-300); CALCIUM 8.7 mg/dL (8.5-10.1); CARBON DIOXIDE 32.3 mmol/L (21.0-32.0); CHLORIDE - SERUM 100 mmol/L (98-107); CREATININE - SERUM 0.7 mg/dL (0.6-1.3); GLUCOSE 111 mg/dL (74-106); PROTEIN - SERUM 6.8 g/dL (6.4-8.2); SODIUM 135 mmol/L (136-145); UREA NITROGEN 10 mg/dL (7-18); eGFR NON AFRICAN AMERICAN > 90 mL/min (90-120)
[2016-10-17 06:26] LABS: POTASSIUM - SERUM 4.7 mmol/L (3.5-5.1)
--- NOTE | 2016-10-17 07:58 | NUR ---
PT IS ALERT. ASSESSMENT DONE PER FLOWHSEET. NO OTHER NEEDS AT THIS TIME WILL CONTINUE TO MONITOR.
[2016-10-17 08:00] VITALS: BP 122/72
[2016-10-17 12:00] VITALS: BP 122/59
[2016-10-17 16:00] VITALS: BP 128/72
--- NOTE | 2016-10-17 20:10 | NUR ---
PT RESTING IN BED. ALERT/ORIENED. SR PER TELEMETRY. SALINE LOCK TO RIGHT A/C. ONGOING COMPLAINTS OF GLOBAL HEADACHE. ANI HUMMEL NOTES/NEW ORDERS FOR THE DAY. INDICATIONS ARE FOR PT TO CONTINUE TO USE THE FIORECET FOR HER HEADACHE. SEE ASSESSMENT. CALL LIGHT IN REACH.
[2016-10-17 20:38] VITALS: BP 137/73
[2016-10-18 00:11] VITALS: BP 151/60
[2016-10-18 04:40] VITALS: BP 177/78
[2016-10-18 05:58] LABS: BASOPHILS 0.1 % (0.0-2.0); EOSINOPHILS 3.3 % (0-7); HEMATOCRIT 37.8 % (36.0-48.0); HEMOGLOBIN 11.3 g/dL (12-16); IMMATURE GRANULOCYTES 0.7 % (0-5); LYMPHOCYTES 20.9 % (15-50); MCHC 29.9 g/dL (31.0-37.0); MCV 93.8 fL (80.0-100.0); MEAN PLATELET VOLUME 9.9 fL (7.4-10.4); PLATELET COUNT 312 10x3/uL (130-400); RBC 4.03 10x6/uL (4.00-5.40); RDW 15.3 % (11.5-14.5)
[2016-10-18 06:24] LABS: ALBUMIN 2.8 g/dL (3.4-5.0); ALKALINE PHOSPHATASE 64 U/L (46-116); ALT (SGPT) 33 U/L (10-68); CALC OSMOLALITY 277 mosm/kg (275-300); CALCIUM 8.9 mg/dL (8.5-10.1); CARBON DIOXIDE 36.3 mmol/L (21.0-32.0); CHLORIDE - SERUM 101 mmol/L (98-107); CREATININE - SERUM 0.6 mg/dL (0.6-1.3); GLUCOSE 103 mg/dL (74-106); POTASSIUM - SERUM 4.4 mmol/L (3.5-5.1); PROTEIN - SERUM 6.9 g/dL (6.4-8.2); SODIUM 140 mmol/L (136-145); UREA NITROGEN 9 mg/dL (7-18); eGFR NON AFRICAN AMERICAN > 90 mL/min (90-120)
--- NOTE | 2016-10-18 07:43 | NUR ---
PT IS ALERT. ASSESSMENT DONE PER FLOWSHEET. NO OTHER NEEDS AT THIS TIME. WILL CONTINUE SIVA ONITOR.
[2016-10-18 08:00] VITALS: BP 135/69
[2016-10-18 12:00] VITALS: BP 116/67
[2016-10-18 16:00] VITALS: BP 122/68
--- NOTE | 2016-10-18 18:00 | NUR ---
PT IS ALERT. NO SS OF DISTRESS AT THIS TIME. KARLA CONTINUE TOMNITOR.
--- NOTE | 2016-10-18 19:43 | NUR ---
RESUMED CARE OF PT, LYING IN BED RESPIRATIONS EVEN AND UNLABORED ON 2LPM VIA NC. 82 SR ON TELEMETRY. RIGHT AC SALINE LOCKED. COMPLAINS OF HEADACHE, WILL BRING FIORECIT. CALL LIGHT IN REACH. WILL CONTINUE TO MONITOR. SEE NURSE ASSESSMENT.
[2016-10-18 20:00] VITALS: BP 119/59
[2016-10-19 01:55] VITALS: BP 102/48
[2016-10-19 06:18] LABS: BASOPHILS 0.2 % (0.0-2.0); EOSINOPHILS 3.3 % (0-7); HEMATOCRIT 38.5 % (36.0-48.0); HEMOGLOBIN 11.4 g/dL (12-16); IMMATURE GRANULOCYTES 0.7 % (0-5); LYMPHOCYTES 22.7 % (15-50); MCH 27.9 pg (26.0-34.0); MCHC 29.6 g/dL (31.0-37.0); MCV 94.1 fL (80.0-100.0); MEAN PLATELET VOLUME 10.1 fL (7.4-10.4); MONOCYTES 5.2 % (2-11); NEUTROPHILS 67.9 % (40-80); PLATELET COUNT 303 10x3/uL (130-400); RBC 4.09 10x6/uL (4.00-5.40); RDW 15.4 % (11.5-14.5); WBC 8.1 10x3/uL (4.8-10.8)
--- NOTE | 2016-10-19 06:32 | NUR ---
20 GUAGE TO RIGHT HAND X 1 STICK.
[2016-10-19 06:38] VITALS: BP 139/72
[2016-10-19 06:53] LABS: ALBUMIN 2.8 g/dL (3.4-5.0); ALKALINE PHOSPHATASE 67 U/L (46-116); ALT (SGPT) 35 U/L (10-68); CALC OSMOLALITY 276 mosm/kg (275-300); CARBON DIOXIDE 36.9 mmol/L (21.0-32.0); CHLORIDE - SERUM 99 mmol/L (98-107); CREATININE - SERUM 0.7 mg/dL (0.6-1.3); GLUCOSE 98 mg/dL (74-106); POTASSIUM - SERUM 4.5 mmol/L (3.5-5.1); PROTEIN - SERUM 7.1 g/dL (6.4-8.2); SODIUM 139 mmol/L (136-145); UREA NITROGEN 10 mg/dL (7-18); eGFR NON AFRICAN AMERICAN > 90 mL/min (90-120)
--- NOTE | 2016-10-19 07:41 | NUR ---
ASSESSMENT COMPLETED. TELEMERTY SHOWS SR. 02 AT 2 L/M PER NC. RIGHT HAND SL. LYING QUIETLY. SR UP WITH CALL LIGHT IN REACH
--- NOTE | 2016-10-19 08:05 | NUR ---
AWAKE WAITING FOR PROCEDURE. NO DISTRESS NOTED. IV PATENT. WILL CONTINUE TO MONITOR.
[2016-10-19 08:32] VITALS: BP 113/67
--- NOTE | 2016-10-19 11:00 | NUR ---
LYING QUIETLY. NO NEEDS VOICED. VISITOR AT BEDSIDE.WILL MONITOR
[2016-10-19 12:12] LABS: ACLA - IGG AB <9 GPL U/mL (0-14); ACLA - IGM AB <9 MPL U/mL (0-12)
[2016-10-19 12:35] VITALS: BP 118/54
--- NOTE | 2016-10-19 13:54 | NUR ---
LYING QUIETLY WITH EYES CLOSED. NO NEEDS NOTED. CALL LIGHT IN REACH WITH SR UP
[2016-10-19 15:55] VITALS: BP 107/77
--- NOTE | 2016-10-19 18:10 | NUR ---
UP IN ROOM. DENIES ANY NEEDS. CALL LIGHT IN REACH WITH SR UP. WILL MONITOR
--- NOTE | 2016-10-19 20:01 | NUR ---
PT RESTING QUIETLY RESP UNLABORED PT DENIES ANY NEEDS OR DISCOMFORT AT THIS TIME NAD NOTED
[2016-10-19 21:37] VITALS: BP 108/48
--- NOTE | 2016-10-20 02:41 | NUR ---
ASSESSMENT COMPLETE, SLEEPING, BED IS LOW, SRX2, CALL LIGHT IN REACH, WILL CONTINUE TO MONITOR
[2016-10-20 05:44] LABS: BASOPHILS 0.2 % (0.0-2.0); EOSINOPHILS 3.3 % (0-7); HEMATOCRIT 39.3 % (36.0-48.0); HEMOGLOBIN 11.9 g/dL (12-16); IMMATURE GRANULOCYTES 0.6 % (0-5); LYMPHOCYTES 21.1 % (15-50); MCHC 30.3 g/dL (31.0-37.0); MCV 92.5 fL (80.0-100.0); MEAN PLATELET VOLUME 9.9 fL (7.4-10.4); MONOCYTES 4.1 % (2-11); NEUTROPHILS 70.7 % (40-80); PLATELET COUNT 312 10x3/uL (130-400); RBC 4.25 10x6/uL (4.00-5.40); RDW 15.6 % (11.5-14.5)
[2016-10-20 05:54] VITALS: BP 119/70
[2016-10-20 06:02] VITALS: BP 115/58
[2016-10-20 06:02] LABS: ALKALINE PHOSPHATASE 73 U/L (46-116); ALT (SGPT) 41 U/L (10-68); CALC OSMOLALITY 269 mosm/kg (275-300); CALCIUM 9.3 mg/dL (8.5-10.1); CARBON DIOXIDE 37.6 mmol/L (21.0-32.0); CHLORIDE - SERUM 98 mmol/L (98-107); CREATININE - SERUM 0.7 mg/dL (0.6-1.3); GLUCOSE 107 mg/dL (74-106); POTASSIUM - SERUM 4.2 mmol/L (3.5-5.1); PROTEIN - SERUM 7.3 g/dL (6.4-8.2); SODIUM 135 mmol/L (136-145); UREA NITROGEN 12 mg/dL (7-18); eGFR NON AFRICAN AMERICAN > 90 mL/min (90-120)
[2016-10-20 08:00] VITALS: BP 127/71
--- NOTE | 2016-10-20 08:04 | NUR ---
ASSESSMENT COMPLETED. TELEMERTY SHOWS SR AT 75. O2 AT 2 L/M PER NC. SL TO RIGHT HAND. UP AB CONRAD. CALL LIGHT IN REACH WITH SR UP
[2016-10-20 10:19] LABS: PROTEIN S - FREE 164 % (57-157); PROTEIN S - TOTAL 176 % (60-150)
--- NOTE | 2016-10-20 11:51 | NUR ---
Patient Name: JUANPABLO AMEZCUA Admission Status: ER Accout number: [id number] Admission Date: 10-15-2016 : 1965 Admission Diagnosis:SHORTNESS OF BREATH Attending: TALISHA Current LOS: 5 Anticipated DC Date: 10-20-2016 Planned Disposition: Home Primary Insurance: MEDICAID [place] Discharge Planning Comments: * Is the patient Alert and Oriented? Yes 0 * How many steps to enter\exit or inside your home? 3 0 * PCP DR. DUTTON 0 * Pharmacy [facility] [address] 0 * Preadmission Environment Home with Family 0 * ADLs Independent 0 * Equipment Nebulizer Oxygen 0 * Other Equipment OXYGEN AT NIGHT ONLY [facility] - MEDICAL EQUIPMENT PROVIDER 0 * List name and contact numbers for known caregivers / representatives who currently or will assist patient after discharge: SHI RODRIGUEZ, MOTHER, 0 * Community resources currently utilized None 0 * Please name any agencies selected above. NONE 0 * Additional services required to return to the preadmission environment? No 0 * Can the patient safely return to the preadmission environment? Yes 0 * Has this patient been hospitalized within the prior 30 days at any hospital? Yes 0 CM MET WITH PT IN ROOM TO DISCUSS DISCHARGE PLANNING AND NEEDS. PT REPORTS LIVING AT HOME INDEPENDENTLY WITH HER MOTHER AND PT'S ADULT CHILD. PT HAS NEBULIZER AND OXYGEN AT NIGHT FROM [facility]. PT HAS NO OUTSIDE SERVICES ASSISTING IN THE HOME. CM DISCUSSED AVAILABILITY OF HOME HEALTH, REHAB SERVICES AND MEDICAL EQUIPMENT. PT DENIES DISCHARGE NEEDS, REPORTS HER MOTHER WILL PICK HER UP FOR DISCHARGE HOME. PT WOULD LIKE HER PORTABLE OXYGEN FROM [facility]. CM SPOKE TO KENDRA GREGG WHO WILL ORDER ABG TESTING FOR HOME PORTABLE OXYGEN NEEDS. CM WILL ARRANGE PORTABLE OXYGEN FOR HOME USE WITH [facility] IF PT QUALIFIES WITH ABG TESTING TODAY FOR DISCHARGE HOME. Chain Builder Loom Control: Moses Menon
[2016-10-20 12:00] VITALS: BP 132/64
[2016-10-20] MEDS ORDERED: ELIQUIS5 MG PO ×2 (12:41→12:43)
[2016-10-20] MEDS ORDERED: ESGIC TABLET1 TAB PO (12:45)
[2016-10-20] MEDS ORDERED: SINGULAIR10 MG PO (12:45)
--- NOTE | 2016-10-20 13:12 | NUR ---
Nutrition follow-up: Diet: Low sodium PO intake 100% of last 6 meals Labs reviewed +BM Wt: 376# PO intake has improved at this time RDN following.
[2016-10-20 13:17] LABS: PROTEIN S - FREE 178 % (57-157); PROTEIN S - FUNCTIONAL 51 % (63-140); PROTEIN S - TOTAL 190 % (60-150)
[2016-10-20 14:23] LABS: PROTEIN C - ANTIGEN 106 % (60-150); PROTEIN C - FUNCTIONAL 154 % (73-180)
--- NOTE | 2016-10-20 14:38 | NUR ---
LYING QUIETLY. AWAITING DISCHARGE.
--- NOTE | 2016-10-20 15:00 | NUR ---
PER TRES/PERLA WITH DR. LOPEZ VIA PHONE, OK THAT PT DOES NOT QUALIFY FOR PORTABLE 02. DR. LOPEZ ALSO AWARE NOT QUALIFIED. OK TO DC TO HOME.
--- NOTE | 2016-10-20 15:05 | NUR ---
Patient Name: JUANPABLO AMEZCUA Encounter No: [id number] : 1965 Primary Insurance: MEDICAID [place] Anticipated DC Date: 10-20-2016 Planned Disposition: Home DCP follow-up note: PT'S TESTING RECEIVED, P02 ON ABG TESTING WAS NOT 54 OR LESS, PT DID NOT QUALIFY FOR PORTABLE OXYGEN. CM SPOKE TO PT WHO WAS ALREADY AWARE, DENIES FURHTER DISCHARGE NEEDS, FAMILY TO EXPANDER FOR DISCHARGE HOME TODAY. ACQUISITION ASSOCIATE NOTIFIED. Moses Menon, CASE MANAGEMENT
--- NOTE | 2016-10-20 15:27 | NUR ---
PT DISCHARGED. IV DCD WITH TIP INTACT. INSTRUCTIONS GIVEN TO PT. TO PRIVATE CAR PER WHEELCHAIR
[2016-10-22 11:02] LABS: HEXAGONAL PHASE PHOS 8
[2016-10-22 11:03] LABS: LUPUS - dRVVT CONFIRMATION 1.2
[2016-10-22 11:04] LABS: LUPUS - dRVVT 52.3 High; PTT-LA 44.7 High; PTT-LA MIX 43.8 High
== END 2016-10-20 15:33 | disposition home or self-care (01) | DRG 176 ==
LOC: D.ER 09:20 → D.M2 14:40
PROVIDERS: Family Medicine; Internal Medicine Pulmonary Disease; Physician Assistant; ADMIT Family Medicine
DX: I26.99 Other pulmonary embolism without acute cor pulmonale (principal); N39.0 Urinary tract infection, site not specified; J98.11 Atelectasis; I50.30 Unspecified diastolic (congestive) heart failure; H10.9 Unspecified conjunctivitis; J45.909 Unspecified asthma, uncomplicated; I08.1 Rheumatic disorders of both mitral and tricuspid valves; G47.33 Obstructive sleep apnea (adult) (pediatric); R51 Headache; Z87.01 Personal history of pneumonia (recurrent); Z87.891 Personal history of nicotine dependence

== ENCOUNTER → 2016-10-30 19:52 | Outpatient (CLI) | payer MEDICAID ==
[2016-10-16 13:05] VITALS: BMI 55.8
[~2016-10-30 19:52] MED LIST changes: +ELIQUIS5 MG PO; +ESGIC TABLET1 TAB PO; +MACROBID100 MG PO; +PHENERGAN25 M1 PO
== END | disposition home or self-care (01) ==
LOC: D.SLEEP 10-18 20:00
DX: E66.01 Morbid (severe) obesity due to excess calories (principal); R40.0 Somnolence; R06.83 Snoring; R53.83 Other fatigue

== ENCOUNTER 2016-11-17 17:31 | Inpatient (IN) | payer MEDICAID ==
[~2016-11-17] VITALS: Ht 172.7 cm; Wt 172.3 kg
--- NOTE | ~2016-11-17 | CN ---
PATIENT NAME:JUANPABLO RHODES MEDICAL RECORD: [id number] : 67 LOCATION:[id number] ADMIT DATE: 11/17/16 ACCOUNT: [id number] CONSULTING PHYSICIAN: DONTA LOPEZ MD REFERRING PHYSICIAN: TODD RYAN MD DATE OF CONSULTATION: 11/18/2016 CONSULT REQUESTING PHYSICIAN: Todd Ryan MD REASON FOR CONSULTATION: Acute hypoxic hypercapnic respiratory failure, history of pulmonary embolism. HISTORY OF PRESENT ILLNESS: Ms. Rhodes is a 51-year-old female who has a severe headache. She also has associated nausea and vomiting. The patient was brought into the ER, she was a bit lethargic. ABG was done, her CO2 was above 60 and pH was 7.34. She was put on BiPAP, oxygenation improved, but her CO2 was getting worse. She still has nausea, vomiting, and she has a severe headache. Denies any fever, chills and no night sweats. REVIEW OF SYSTEMS: Mainly in the history of present illness. PAST MEDICAL HISTORY: 1. Recent pulmonary embolism in September. 2. History of asthma. 3. History of pneumonia. 4. Morbid obesity. 5. Obstructive sleep apnea, noncompliant. PAST SURGICAL HISTORY: She had cholecystectomy. ALLERGIES: SHE IS ALLERGIC TO SULFA, CODEINE AND CEFEPIME. PRESENT MEDICATIONS: She is on Eliquis. Her other medication is reviewed. PERSONAL AND SOCIAL HISTORY: The patient is an ex-smoker, nondrinker. FAMILY HISTORY: Noncontributory. PHYSICAL EXAMINATION: GENERAL: Now, the patient is lying comfortably at bed. She is not in acute distress. VITAL SIGNS: The blood pressure is 111/62, pulse is 74, respirations 24, temperature is 98.6, SpO2 is 97% on nasal cannula oxygen. HEENT: Conjunctivae are pink. Sclerae nonicteric. NECK: Supple, no JVD. CHEST: The chest excursion is minimal on both sides. There is no wheeze, no rales. HEART: Rhythm regular, normal sound, no murmur. ABDOMEN: Soft. Bowel sounds present. No hepatosplenomegaly. RECTAL: Deferred. EXTREMITIES: No cyanosis, no clubbing and there is no pedal edema. SKIN: Warm, normal turgor. CENTRAL NERVOUS SYSTEM: The patient is awake and alert. There is no obvious cranial nerve abnormality. The gait was not tested. CONSULT REPORT [id number] JUANPABLO RHODES IMAGING: CTA of the chest did show bilateral pulmonary embolism. There are also some dependent lung atelectasis. LABORATORY DATA: CBC: WBC 10.4, hemoglobin 12.6, hematocrit 41.3, the platelet count 307. Chemistry: Sodium 140, potassium 4.3, BUN is 9, creatinine 0.9, glucose 123. ABG: The pH is 7.31, pCO2 66.2%, the pO2 initially was 60 and then improved at 93 on BiPAP. IMPRESSION: 1. Ncyjt-tx-bokwwjl hypoxic hypercapnic respiratory failure. 2. Respiratory acidosis secondary to #1. 3. Pulmonary embolism. 4. Obesity hypoventilation syndrome with obstructive sleep apnea. The patient is noncompliant. She just got her CPAP machine yesterday, but she is not using it yet. 5. Headache with associated nausea and vomiting, possible migraine headache. 6. Hyperammonemia. RECOMMENDATION: 1. Continue BiPAP. 2. Continue Eliquis. 3. Start on Levaquin. 4. Check the CT scan of the head, follow up labs in the morning. I discussed with Dr. Ryan. The critical care time was 45 minutes. TRANSINT:[id number] Voice Confirmation ID: [id number] DOCUMENT ID: [id number] DONTA LOPEZ MD CC: TODD RYAN MD [id number] DICTATION DATE: 11/18/16 1249 SUPERVISOR CELL EFFICIENCY: 11/18/[address] [facility] [address] [id number]
[2016-11-17 18:11] LABS: BASOPHILS 0.3 % (0-2); EOSINOPHILS 0.8 % (0-7); HEMATOCRIT 41.3 % (36.0-48.0); HEMOGLOBIN 12.6 g/dL (12-16); IMMATURE GRANULOCYTES 0.3 % (0-5); LYMPHOCYTES 14.8 % (15-50); MCH 28.5 pg (26.0-34.0); MCHC 30.5 g/dL (31.0-37.0); MCV 93.4 fL (80.0-100.0); MEAN PLATELET VOLUME 9.7 fL (7.4-10.4); MONOCYTES 2.3 % (2-11); NEUTROPHILS 81.5 % (40-80); PLATELET COUNT 307 10x3/uL (130-400); RBC 4.42 10x6/uL (4.00-5.40); RDW 15.9 % (11.5-14.5); WBC 10.4 10x3/uL (4.8-10.8)
[2016-11-17 18:39] LABS: ALBUMIN 3.4 g/dL (3.4-5.0); ANION GAP 8.4 mmol/L (8-16); BILIRUBIN - TOTAL 0.3 mg/dL (0.2-1.3); CARBON DIOXIDE 34.9 mmol/L (21.0-32.0); CREATININE - SERUM 0.9 mg/dL (0.6-1.3); POTASSIUM - SERUM 4.3 mmol/L (3.5-5.1); PROTEIN - SERUM 7.8 g/dL (6.4-8.2)
[2016-11-17 20:11] LABS: APPEARANCE CLOUDY (CLEAR); BILIRUBIN NEGATIVE (NEGATIVE); COLOR YELLOW (YELLOW); GLUCOSE NEGATIVE (NEGATIVE); KETONE NEGATIVE (NEGATIVE); LEUKOCYTE ESTERASE NEGATIVE (NEGATIVE); NITRITE NEGATIVE (NEGATIVE); PROTEIN 1+ mg/dL (NEGATIVE); UROBILINOGEN NORMAL (NORMAL)
[2016-11-17 23:15] VITALS: BP 126/72
--- NOTE | 2016-11-17 23:15 | NUR ---
PT ARRIVED TO ICU VIA STRETCHER. ACCOMPANIED BY HOSPITAL STAFF. AAO. ANSWERS QUESTIONS APPROPRIATELY.
--- NOTE | 2016-11-17 23:15 | NUR ---
ASSESSMENT COMPLETE. S1S2. RR SHALLOW; DYSNPNEA DIMINISHED THROUGHOUT ALL LOBES. +2 PITTING EDEMA NOTED TO LOWER EXTREMITIES. NSR SHOWING ON MONITOR. RASH NOTED TO PERINEAL AND BILATERALLY UNDER BREAST. PSORIASIS NOTED BILATERALLY ON ARMS. PT C/O PAIN 9/10 TO HEAD. C/O NAUSEA.
[2016-11-17 23:50] VITALS: BP 126/72; BMI 58.2
[2016-11-18] VITALS (23 sets, daily range): BP systolic 106–150; BP diastolic 35–88; Ht 172.7 cm; Wt 172.3 kg
--- NOTE | 2016-11-18 00:45 | NUR ---
DR CHÁVEZ AT BEDSIDE.
--- NOTE | 2016-11-18 00:50 | NUR ---
PT PLACED ON BIPAP.
--- NOTE | 2016-11-18 02:15 | NUR ---
PT TAKEN OFF OF BIPAP. N/V PRESENT; UNABLE TO KEEP MASK ON.
--- NOTE | 2016-11-18 02:20 | NUR ---
PT VOMITED; 150ML YELLOW. C/O DEMEROL CAUSING SICKNESS. REQUESTED NOT TO BE GIVEN DEMEROL AGAIN.
--- NOTE | 2016-11-18 03:30 | NUR ---
REASSESSMENT COMPLETE. NO CHANGES FROM PREVIOUS ASSESSMENT. VSS. NO DISTRESS NOTED. CALL LIGHT IN REACH. C/O NAUSEA/VOMIT.
--- NOTE | 2016-11-18 11:30 | NUR ---
SISTER SHAKIR HERNANDEZ CALLED FOR UPDATE. PT HAS GIVEN PERMISSION TO TALK TO HER.
[2016-11-18 12:54] LABS: APPEARANCE CLOUDY (CLEAR); BILIRUBIN NEGATIVE (NEGATIVE); COLOR YELLOW (YELLOW); GLUCOSE NEGATIVE (NEGATIVE); KETONE NEGATIVE (NEGATIVE); LEUKOCYTE ESTERASE NEGATIVE (NEGATIVE); NITRITE NEGATIVE (NEGATIVE); PROTEIN TRACE mg/dL (NEGATIVE); SPECIFIC GRAVITY 1.005 (1.005-1.020); UROBILINOGEN NORMAL (NORMAL)
[2016-11-18 12:56] LABS: AMORPHOUS SEDIMENT >1+ /lpf (NONE SEEN); BACTERIA FEW /hpf (NONE SEEN); EPITHELIAL CELLS 0-5 /hpf (0-5); WHITE CELLS - URINE 0-5 /hpf (0-5)
--- NOTE | 2016-11-18 13:34 | NUR ---
PT OFF FLOOR FOR CT.
--- NOTE | 2016-11-18 14:00 | NUR ---
PT BACK FROM CT. PLACED ON BIPAP.
--- NOTE | 2016-11-18 18:33 | NUR ---
FAMILY AT BEDSIDE FOR VISITATION. PT ALLOWED OFF BIPAP TO EAT DINNER.
--- NOTE | 2016-11-18 19:03 | NUR ---
PT ASSISTED UP TO BEDSIDE TOILET. SMALL AMOUNT OF LIQUID BOWEL MOVEMENT NOTED.
--- NOTE | 2016-11-18 19:15 | NUR ---
ASSESSMENT COMPLETE. S1S2. RR SHALLOW. DIMINISHED THROUGHOUT ALL LOBES. PT C/O PAIN UNDER BREAST. YEAST PRESENT; RASH NOTED. RADIAL AND PEDAL PULSES PALPATED. PERRLA. +2 EDEMA NOTED TO LOWER EXTREMITIES.
--- NOTE | 2016-11-18 21:30 | NUR ---
NO FAMILY AT BEDSIDE FOR VISITAITON.
--- NOTE | 2016-11-18 22:45 | NUR ---
REASSESSMENT COMPLETE. PT C/O PAIN IN HEAD 10/26. DECREASED FROM EARILER PAIN LEVEL. PT RESTING. VSS. NO DISTRESS NOTED. CALL LIGHT IN REACH. WILL CONTINUE TO MONITOR.
[2016-11-19] VITALS (13 sets, daily range): BP systolic 109–143; BP diastolic 58–91
--- NOTE | 2016-11-19 02:08 | NUR ---
PT RESTING; EYES CLOSED. VSS. NO DISTRESS NOTED. WILL CONTINUE TO MONITOR.
--- NOTE | 2016-11-19 03:15 | NUR ---
REASSESSMENT COMPLETE. NO CHANGES FROM PREVIOUS ASSESSMENT. VSS. NO DISTRESS NOTED. WILL CONTINUE TO MONITOR.
[2016-11-19 03:42] LABS: BASOPHILS 0.3 % (0-2); EOSINOPHILS 1.3 % (0-7); HEMATOCRIT 38.9 % (36.0-48.0); HEMOGLOBIN 11.9 g/dL (12-16); IMMATURE GRANULOCYTES 0.3 % (0-5); LYMPHOCYTES 19.6 % (15-50); MCH 28.4 pg (26.0-34.0); MCHC 30.6 g/dL (31.0-37.0); MCV 92.8 fL (80.0-100.0); MEAN PLATELET VOLUME 9.8 fL (7.4-10.4); MONOCYTES 6.6 % (2-11); NEUTROPHILS 71.9 % (40-80); PLATELET COUNT 258 10x3/uL (130-400); RBC 4.19 10x6/uL (4.00-5.40); RDW 15.8 % (11.5-14.5); WBC 7.8 10x3/uL (4.8-10.8)
[2016-11-19 04:12] LABS: ALBUMIN 3.3 g/dL (3.4-5.0); ANION GAP 7.1 mmol/L (8-16); BILIRUBIN - TOTAL 0.22 mg/dL (0.2-1.3); CALCIUM 9.2 mg/dL (8.5-10.1); CARBON DIOXIDE 32.8 mmol/L (21.0-32.0); POTASSIUM - SERUM 3.9 mmol/L (3.5-5.1); PROTEIN - SERUM 7.3 g/dL (6.4-8.2); THYROID STIMULATING HORMONE 8.16 uIU/mL (0.36-3.74)
--- NOTE | 2016-11-19 07:30 | NUR ---
PT AWAKE, UP TO BEDSIDE TOILET FOR BOWEL MOVEMENT. ON 3L NC AT THIS TIME. ASKING TO HAVE CERON CATHETER OUT.
--- NOTE | 2016-11-19 08:57 | NUR ---
CERON REMOVED, TIP INTACT. 1500ML CONCENTRATED URINE OUTPUT
--- NOTE | 2016-11-19 10:27 | NUR ---
Nutrition follow-up: Pt still with clear liquid diet due to some nause, vomiting BIPAP in place Labs reviewed wt: 380# +BM, liquid Nutrition support will need to be started if pts diet unable to advance to full liquids withon [address] RDN following.
--- NOTE | 2016-11-19 12:58 | NUR ---
SPOKE WITH DR LOPEZ. PT CAN TRANSFER TO THE FLOOR LONG SHE USES THE BIPAP.
--- NOTE | 2016-11-19 15:38 | NUR ---
CHRONULAC GIVEN. PT SITTING UP IN CHAIR AT BEDSIDE AWAITING TRANSFER.
--- NOTE | 2016-11-19 21:52 | NUR ---
PT COMPLAINS OF ICHING, PAGED TRES DUNCAN TO SEE IF WE CAN GIVE BENADRYL
--- NOTE | 2016-11-20 04:37 | NUR ---
ASSESSMENT COMPLETE, SLEEPING WITH BIPAP ON, CALL LIGHT IN REACH, WILL MONITOR
--- NOTE | 2016-11-20 05:37 | NUR ---
WILL CONTINUE WITH PLAN OF CARE, CALL LIGHT IN REACH.
[2016-11-20 06:42] VITALS: BP 136/71
[2016-11-20 07:56] VITALS: BP 154/81
--- NOTE | 2016-11-20 08:01 | NUR ---
AM ROUNDING- RECEIVED REPORT FROM DIRECTOR OF CONSERVATION NURSE PINKY. PT IS CURRENTLY LAYING IN BED ON BACK TALKING ON CELLPHONE. ON 02 AT 3L VIA NC. IV SEEN TO RIGHT AC THAT IS CURRENTLY SALINE LOCKED. SECOND IV SEEN TO LEFT HAND THAT IS CURRENTLY SALINE LOCKED. NO NEED AT CURRENT TIME. WILL CONTINUE TO MONITOR.
[2016-11-20 12:38] VITALS: BP 141/73
--- NOTE | 2016-11-20 15:37 | NUR ---
Patient Name: JUANPABLO AMEZCUA Admission Status: ER Accout number: [id number] Admission Date: 11-17-2016 : 1965 Admission Diagnosis:SHORTNESS OF BREATH Attending: VERNON Current LOS: 3 Anticipated DC Date: 11-24-2016 Planned Disposition: Home Primary Insurance: MEDICAID [place] Discharge Planning Comments: CM met with patient to assess dc plans/needs. Patient lives in a one story home with three stairs to enter the home. She lives with her mother, son, daughter, and grandson. She reports she is independent in her care at home. She has a nebulizer and oxygen at home. She is going to be getting a CPAP when she leaves the hospital. She was to pick this up at [facility] the day she was admitted into the hospital. She denied discharge needs at this time. Cm will continue to follow and will assist with dc plans/needs. Donna Goldstein Rn, [facility] [phone] Is the patient Alert and Oriented? Yes * How many steps to enter\exit or inside your home? 3 * PCP Dr. Judy Kilpatrick * Pharmacy [facility] on [address] * Preadmission Environment Home with Family * ADLs Independent * Equipment Nebulizer Oxygen * List name and contact numbers for known caregivers / representatives who currently or will assist patient after discharge: Katie Padilla - Mother - [phone] * Community resources currently utilized None * Please name any agencies selected above. [facility] * Additional services required to return to the preadmission environment? No * Can the patient safely return to the preadmission environment? Yes * Has this patient been hospitalized within the prior 30 days at any hospital? Yes Implementation Analyst: Donna Goldstein
[2016-11-20 15:42] VITALS: BP 157/87
--- NOTE | 2016-11-20 17:22 | NUR ---
PT IS CURRENTLY SITTING UP IN BED LAYING ON BACK WITH EYES OPEN RESTING. DENIES ANY NEED AT CURRENT TIME. WILL CONTINUE TO MONITOR.
--- NOTE | 2016-11-20 17:23 | NUR ---
PT IS CURRENTLY SITTING UP IN BED WITH EYES OPEN RESTING. DENIES ANY NEED AT CURRENT TIME. WILL CONTINUE TO MONITOR.
[2016-11-20 20:21] VITALS: BP 115/79
--- NOTE | 2016-11-20 21:42 | NUR ---
INITAIL ROUNDS COMPLETED AT 1920 HRS. PT DENIED ANY DISCOMFORT. ASSESSMENT COMPLETED AT 1940 HRS. VSS. O2 2NC. LUNGS DIMINISHED IN BASES BILAT. IV TORAC AND L HAND SL. BOTH PATENT. TRACE PEDAL EDEMA NOTED. RENESS NOTED UNDER BILAT BREASTS. BIPAP AT HS. PM MEDS GIKRISTINA. PT CURRENTLY RESTING WITH EYES CLOSED WITH BIPAP ON. RESP EVEN AND REGULAR. SR UP X2, CALL LIGHT WITHIN REACH.
--- NOTE | 2016-11-20 23:54 | NUR ---
IMMITREX 100MG PO GIVEN FOR C/O ERWIN. WILL CONTINUE TO MONITOR.
[2016-11-21 00:28] VITALS: BP 122/59
--- NOTE | 2016-11-21 03:15 | NUR ---
PT RESTING WITH EYES CLOSED. RESP EVEN AND REGULAR. SR UP X2,C ALL LIGHT WITHIN REACH.
[2016-11-21 04:13] VITALS: BP 127/65
--- NOTE | 2016-11-21 04:46 | NUR ---
PT RESTING WITH EYES CLOSED. RESP EVEN AND REGULAR. SR UP X2, CALL LIGHT WITHIN REACH.
--- NOTE | 2016-11-21 05:57 | NUR ---
VSS THROUGHOUT NIGHT. PT STATED IMMITREX ALLEVIATED ERWIN. NEEDS MET; WILL CONTINUE TO MONITOR.
--- NOTE | 2016-11-21 07:34 | NUR ---
AM ROUNDING- RECEIVED REPORT FROM MUCKER OPERATOR NURSE DEX. PT IS CURRENTLY SITTING UP IN BED WITH EYES OPEN WATCHING TV. ON 02 AT 2L VIA NC. NO MONITOR. IV SEEN TO RIGHT AC THAT IS SALINE LOCKED. SECOND IV SEEN TO LEFT HAND THAT IS SALINE LOCKED. PT IS ALERT AND ORIENTED. NO NEED AT CURRENT TIME. WILL CONTINUE TO MONITOR AND CONTINUE WITH PLAN OF CARE.
[2016-11-21 08:36] VITALS: BP 132/77
[2016-11-21 11:28] VITALS: BP 150/86
[2016-11-21 17:04] VITALS: BP 146/67
--- NOTE | 2016-11-21 17:33 | NUR ---
PT IS CURRENTLY SITTING UP IN CHAIR EATING DINNER. DENIES ANY NEED AT CURRENT TIME. WILL CONTINUE TO MONITOR.
--- NOTE | 2016-11-21 19:48 | NUR ---
RECEIVED REPORT, PT IS SLEEPING, WITH BIPAP ON, BED IS LOW, SRX2,WILL CONTINUE CARE OF PLAN
[2016-11-21 20:32] VITALS: BP 140/74
[2016-11-22] VITALS (7 sets, daily range): BP systolic 119–147; BP diastolic 55–76
--- NOTE | 2016-11-22 00:20 | NUR ---
CHAINSTITCH SEWING MACHINE OPERATOR AT BED SIDE TO OBTAIN VITALS. WILL CONT PLAN OF CARE.
--- NOTE | 2016-11-22 03:08 | NUR ---
ASSESSMENT COMPLETE, SEE FLOWSHEET, PT SLEEPING, CALL LIGHT IN REACH, WILL CONTINUE PLAN OF CARE
[2016-11-22 06:20] LABS: BASOPHILS 0.3 % (0-2); EOSINOPHILS 3.7 % (0-7); HEMATOCRIT 40.4 % (36.0-48.0); HEMOGLOBIN 12.2 g/dL (12-16); IMMATURE GRANULOCYTES 0.3 % (0-5); LYMPHOCYTES 22.5 % (15-50); MCH 28.3 pg (26.0-34.0); MCHC 30.2 g/dL (31.0-37.0); MCV 93.7 fL (80.0-100.0); MEAN PLATELET VOLUME 10.2 fL (7.4-10.4); MONOCYTES 6.2 % (2-11); PLATELET COUNT 280 10x3/uL (130-400); RBC 4.31 10x6/uL (4.00-5.40); RDW 16.5 % (11.5-14.5); WBC 7.9 10x3/uL (4.8-10.8)
[2016-11-22 06:29] LABS: CALC OSMOLALITY 283 mosm/kg (275-300); CALCIUM 9.2 mg/dL (8.5-10.1); CARBON DIOXIDE 29.7 mmol/L (21.0-32.0); CHLORIDE - SERUM 106 mmol/L (98-107); CREATININE - SERUM 0.7 mg/dL (0.6-1.3); GLUCOSE 107 mg/dL (74-106); POTASSIUM - SERUM 4.3 mmol/L (3.5-5.1); SODIUM 142 mmol/L (136-145); UREA NITROGEN 14 mg/dL (7-18); eGFR NON AFRICAN AMERICAN > 90 mL/min (90-120)
--- NOTE | 2016-11-22 14:35 | NUR ---
ALERT AND ORIENTED X4. SITTING UP IN BED WATCHING TV. OXYGEN THERAPY FOR SOB. EXPRESSES BEING READY TO GO HOME. DENIES ANY NEEDS AT THIS TIME. CONTINUE PLAN OF CARE AND SAFETY PRECAUTIONS.
--- NOTE | 2016-11-22 18:15 | NUR ---
ALERT AND ORIENTED X4. SHOWER AND LINEN CHANGE COMPLETE. LT HAND IV PATENT SL. RT AC PATENT SL. DENIES ANY NEEDS. NO CHANGE. CONTINUE PLAN OF CARE AND SAFETY PRECAUTIONS.
--- NOTE | 2016-11-22 20:06 | NUR ---
INITIAL ROUNDS COMPLETED AT 1915 HRS. PT DENIED ANY DISOCMFORT. ASSESSMENT COMPLETED AT 1944 HRS. VSS. IV TO PALLAVI MARIAT. IV TO L HAND LEAKING. DC'D WITH CATHETER INTACT. O2 2LNC. LUNGS DIMINISHED IN BASES BILAT. READNESS NOTED UNDER BILAT BREASTS AND UNDER ABD FOLD. HAS C/O MILD ERWIN. WILL CONTINUE TO MONITOR.
--- NOTE | 2016-11-22 22:02 | NUR ---
PM MEDS GIVEN. IMMITREX 100MG PO GIVEN FOR C/O ERWIN. WILL CONTINUE TO MONITOR.
--- NOTE | 2016-11-22 23:38 | NUR ---
PT RESTING WITH EYES CLOSED. RESP EVEN AND REGULAR. SR UP X2, CALL LIGHT WITHIN REACH AND BIPAP ON.
--- NOTE | 2016-11-23 01:44 | NUR ---
PT RESTING WITH EYES CLOSED. RESP EVEN AND REGULAR. SR UP X2, CALL LIGHT WITHIN REACH AND BIPAP IN USE.
--- NOTE | 2016-11-23 04:16 | NUR ---
PT AWAKE; DENIES ANY DISCOMFORT. COFFEE GIVEN PER REQUEST. WILL CONTINUE TO MONITOR.
--- NOTE | 2016-11-23 05:43 | NUR ---
VSS THROUGHOUT NGIHT. PT DENIED ANY DISCOMFORT. NEEDS MET; WILL CONTINUE TO MONITOR.
[2016-11-23 06:05] VITALS: BP 133/82
[2016-11-23 07:55] LABS: BASOPHILS 0.2 % (0-2); EOSINOPHILS 3.9 % (0-7); HEMATOCRIT 40.6 % (36.0-48.0); HEMOGLOBIN 12.8 g/dL (12-16); IMMATURE GRANULOCYTES 0.2 % (0-5); LYMPHOCYTES 28.5 % (15-50); MCH 28.7 pg (26.0-34.0); MCHC 31.5 g/dL (31.0-37.0); MEAN PLATELET VOLUME 10.1 fL (7.4-10.4); MONOCYTES 5.6 % (2-11); NEUTROPHILS 61.6 % (40-80); PLATELET COUNT 251 10x3/uL (130-400); RBC 4.46 10x6/uL (4.00-5.40); RDW 16.2 % (11.5-14.5); WBC 9.1 10x3/uL (4.8-10.8)
[2016-11-23 08:08] LABS: CALC OSMOLALITY 278 mosm/kg (275-300); CALCIUM 9.4 mg/dL (8.5-10.1); CHLORIDE - SERUM 103 mmol/L (98-107); CREATININE - SERUM 0.8 mg/dL (0.6-1.3); GLUCOSE 104 mg/dL (74-106); POTASSIUM - SERUM 4.2 mmol/L (3.5-5.1); SODIUM 139 mmol/L (136-145); UREA NITROGEN 14 mg/dL (7-18); eGFR NON AFRICAN AMERICAN 80 mL/min (90-120)
[2016-11-23 08:28] VITALS: BP 151/87
[2016-11-23] MEDS ORDERED: LEVAQUIN750 MG PO (10:16)
[2016-11-23] MEDS ORDERED: CHRONULAC30 ML PO (10:18)
--- NOTE | 2016-11-23 11:47 | NUR ---
CALLED [facility] [address] AND PER PATIENT REQUEST FOR LACTULOSE 30 ML SOULUTION FOR 30 DAYS WITH NO REFILLS.
--- NOTE | 2016-11-23 12:45 | NUR ---
ALERT AND ORIENTED X4. SITTING UP IN BED. DISCHARGE INSTRUCTIONS GIVEN VERBALLY AND WRITTEN. DISCHARGE PAPERS SIGNED ON CHART. DC RT AC IV TIP INTACT. ESCORT TO RIDE VIA WHEELCHAIR. REMAINS FREE FROM INJURY.
== END 2016-11-23 12:54 | disposition home or self-care (01) | DRG 175 ==
LOC: D.ER 17:31 → D.ICU 21:48 → D.M2 11-19 16:03
PROVIDERS: Emergency Medicine; ADMIT Family Medicine Adult Medicine
PROC: 0T9B70Z Drainage of Bladder with Drainage Device, Via Natural or Artificial Opening (ICD-10-PCS; principal; 2016-11-17)
PROC: 5A09557 Assistance with Respiratory Ventilation, Greater than 96 Consecutive Hours, Continuous Positive Airway Pressure (ICD-10-PCS; 2016-11-17)
DX: I26.99 Other pulmonary embolism without acute cor pulmonale (principal); J18.9 Pneumonia, unspecified organism; Z68.43 Body mass index [BMI] 50.0-59.9, adult; E66.2 Morbid (severe) obesity with alveolar hypoventilation; E72.20 Disorder of urea cycle metabolism, unspecified; R51 Headache; Z87.01 Personal history of pneumonia (recurrent); Z87.891 Personal history of nicotine dependence

== ENCOUNTER → 2017-01-26 11:04 | Outpatient (CLI) | payer OTHER ==
[~2017-01-26 11:04] MED LIST changes: +ADVAIR HFA 230-12 GM INH; +CHRONULAC30 ML PO; +DULERA 100 MCG8.8 GM INH; +IMITREX50 MG PO; +LEVAQUIN750 MG PO
== END | disposition home or self-care (01) ==
LOC: D.RT 11:00
DX: Z02.71 Encounter for disability determination (principal)

== ENCOUNTER → 2017-03-23 10:15 | Outpatient (CLI) | payer MEDICAID | END | disposition home or self-care (01) | LOC: D.RAD 10:15 | DX: J18.9 Pneumonia, unspecified organism (principal) ==

== ENCOUNTER 2017-05-05 17:23 | Inpatient (IN) | payer MEDICAID ==
--- NOTE | 2017-05-05 17:50 | NUR ---
ALERT AND ORIENTED X4. ARRIVES TO ROOM VIA WHEELCHAIR FROM DOCTOR'S OFFICE ACCOMPANIED BY FAMILY. AMBULATES TO BED. GAIT STEADY. HAS HOME O2 @ 2L. CPAP AT NIGHT. DRY HACKING COUGH. COMPLAINS OF CHEST PAIN AFTER COUGH. REMAIN NPO FOR CTA TO RULE OUT POSSIBLE PE. REFUSE SCDs. TAKES ELIQUIS. CONTINUE ADMISSION PROCESS. BED LOCKED AND LOW. CALL LIGHT IN REACH. TWO SIDERAILS UP.
[2017-05-05 18:24] VITALS: BP 154/78; BMI 59.1
[2017-05-05 18:24] LABS: BASOPHILS 0.3 % (0-2); EOSINOPHILS 2.6 % (0-7); HEMATOCRIT 37.2 % (36.0-48.0); HEMOGLOBIN 12.1 g/dL (12-16); IMMATURE GRANULOCYTES 0.3 % (0-5); LYMPHOCYTES 18.3 % (15-50); MCH 29.6 pg (26.0-34.0); MCHC 32.5 g/dL (31.0-37.0); MEAN PLATELET VOLUME 9.9 fL (7.4-10.4); MONOCYTES 6.4 % (2-11); NEUTROPHILS 72.1 % (40-80); RBC 4.09 10x6/uL (4.00-5.40); RDW 14.8 % (11.5-14.5); WBC 8.6 10x3/uL (4.8-10.8)
[2017-05-05 18:25] LABS: PLATELET COUNT 262 10x3/uL (130-400)
[2017-05-05 18:38] LABS: CALC OSMOLALITY 272 mosm/kg (275-300); CALCIUM 8.9 mg/dL (8.5-10.1); CARBON DIOXIDE 28.8 mmol/L (21.0-32.0); CHLORIDE - SERUM 100 mmol/L (98-107); CREATININE - SERUM 0.8 mg/dL (0.6-1.3); GLUCOSE 103 mg/dL (74-106); SODIUM 137 mmol/L (136-145); UREA NITROGEN 11 mg/dL (7-18); eGFR NON AFRICAN AMERICAN 80 mL/min (90-120)
[2017-05-05 19:00] VITALS: BP 122/58
--- NOTE | 2017-05-05 19:30 | NUR ---
ROUNDING NOTE: PT IS NEW ADMIT TO THE UNIT AT 1700 ON DAY SHIFT. PT REQUESTING A PILLOW AND PHONE, GIVEN TO PT PER REQUEST. PT'S IV IN THE RIGHT HAND BLEW, SO IV RESTARTED IN LEFT HAND. PT IS VERY SOB WITH MINIMAL EXERTION. PT IS ON 2L OF OXYGEN IV NASAL CANNULA. LOW GRADE TEMP OF 100.0. PT W/ PRODUCTIVE COUHG W/ YELLOWISH-WHITE SPUTUM. PT C/O CP W/ COUGHING. PT STARTING TO FEEL VERY SOB. PT IS DUE FOR RESP TREATMENTS. EXPLAINED THAT RESP THERAPIST WILL BE IN SHORTLY FOR THAT. WILL CONT TO MONITOR.
--- NOTE | 2017-05-05 23:30 | NUR ---
PT CONTINUES TO BE VERY SOB, WHICH IS GETTING WORSE. PT WITH VERY DMINISHED LUNG SOUNDS, SHALLOW RESPIRATIONS, AND POOR AIR MOVEMENT. RESP THERAPIST HAS NOT BEEN IN TO SEE PATIENT TO ADMINISTER HER 1899 BREATHING TREATMENTS. CALLED RESP THERAPIST TO COME AND SEE PATIENT. THERE WAS SOME MIX UP WITH THE ROOM ASSIGNMENTS, SO THAT IS HOW HER 1899 RESP TXS WERE MISSED. PT IS FEELING MUCH BETTER AFTER RECEIVING HER BREATHING TREATMENTS. WILL CONT TO MONITOR.
[2017-05-06] VITALS: BP 115/58
[2017-05-06 04:00] VITALS: BP 125/63
[2017-05-06 05:07] LABS: BASOPHILS 0.1 % (0-2); EOSINOPHILS 0 % (0-7); HEMATOCRIT 37.8 % (36.0-48.0); HEMOGLOBIN 12.2 g/dL (12-16); IMMATURE GRANULOCYTES 0.4 % (0-5); MCH 29.3 pg (26.0-34.0); MCHC 32.3 g/dL (31.0-37.0); MCV 90.9 fL (80.0-100.0); MEAN PLATELET VOLUME 10.1 fL (7.4-10.4); NEUTROPHILS 84.5 % (40-80); PLATELET COUNT 272 10x3/uL (130-400); RBC 4.16 10x6/uL (4.00-5.40); RDW 14.7 % (11.5-14.5); WBC 7.2 10x3/uL (4.8-10.8)
[2017-05-06 05:21] LABS: CALC OSMOLALITY 283 mosm/kg (275-300); CALCIUM 8.9 mg/dL (8.5-10.1); CHLORIDE - SERUM 103 mmol/L (98-107); CREATININE - SERUM 0.8 mg/dL (0.6-1.3); POTASSIUM - SERUM 4.1 mmol/L (3.5-5.1); SODIUM 141 mmol/L (136-145); UREA NITROGEN 11 mg/dL (7-18); eGFR NON AFRICAN AMERICAN 80 mL/min (90-120)
--- NOTE | 2017-05-06 05:26 | NUR ---
PT'S IV IN RIGHT HAND TENDER AND NOT FLUSHING WELL, SO IV SITE D/C'D. 20G IV STARTED IN LEFT HAND. PT TOLERATED WELL. ALSO COLLECTED SPUTUM CULTURE AND BROUGHT TO THE LAB DURING THIS SHIFT WELL. WILL CONT TO MONITOR.
[2017-05-06 05:31] LABS: GLUCOSE 171 mg/dL (74-106)
[2017-05-06 08:00] VITALS: BP 136/76
[2017-05-06 10:41] VITALS: BMI 59.0
[2017-05-06 12:00] VITALS: BP 111/59
[2017-05-06 16:00] VITALS: BP 130/63
--- NOTE | 2017-05-06 19:48 | NUR ---
RESUMED CARE OF PT, LYING IN BED RESPIRATINOS EVEN AND UNLABORED WITH CPAP ON. LEFT HAND SALINE LOCKED. NO NEEDS AT THIS TIME, WILL CONTINUE TO MONTIOR. SEE NURSE ASSESSMENT.
[2017-05-06 21:38] VITALS: BP 122/61
--- NOTE | 2017-05-06 21:41 | NUR ---
TRES GREGG APN PAGED FOR SLEEP AID. AWAITING CALL BACK.
[2017-05-07 01:53] VITALS: BP 112/43
--- NOTE | 2017-05-07 02:30 | NUR ---
LYING IN BED, CALL LIGHT IN REACH. WILL CONTINUE WITH PLAN OF CARE.
[2017-05-07 04:16] VITALS: BP 122/60
[2017-05-07 06:11] LABS: BASOPHILS 0.1 % (0-2); EOSINOPHILS 0 % (0-7); HEMATOCRIT 38.1 % (36.0-48.0); HEMOGLOBIN 12.2 g/dL (12-16); IMMATURE GRANULOCYTES 0.5 % (0-5); MCH 29.5 pg (26.0-34.0); MEAN PLATELET VOLUME 10.3 fL (7.4-10.4); MONOCYTES 5.5 % (2-11); NEUTROPHILS 83.9 % (40-80); PLATELET COUNT 302 10x3/uL (130-400); RBC 4.14 10x6/uL (4.00-5.40); RDW 15.1 % (11.5-14.5)
[2017-05-07 06:18] LABS: WBC 11.4 10x3/uL (4.8-10.8)
[2017-05-07 06:24] LABS: CALC OSMOLALITY 280 mosm/kg (275-300); CALCIUM 9.2 mg/dL (8.5-10.1); CARBON DIOXIDE 27.3 mmol/L (21.0-32.0); CHLORIDE - SERUM 104 mmol/L (98-107); CREATININE - SERUM 0.8 mg/dL (0.6-1.3); GLUCOSE 152 mg/dL (74-106); POTASSIUM - SERUM 4.2 mmol/L (3.5-5.1); SODIUM 139 mmol/L (136-145); UREA NITROGEN 13 mg/dL (7-18); eGFR NON AFRICAN AMERICAN 80 mL/min (90-120)
--- NOTE | 2017-05-07 07:15 | NUR ---
REPORT RECEIVED. RR EVEN AND UNLABORED. PT DENIES NEEDS AT THIS TIME. ASSESSMENT PERFORMED. WILL CTM.
[2017-05-07 08:46] VITALS: BP 140/76
[2017-05-07 11:59] VITALS: BP 154/70
[2017-05-07 16:20] VITALS: BP 142/71
--- NOTE | 2017-05-07 18:30 | NUR ---
REPORT RECEIVED. RR EVEN AND UNLABORED. FAMILY AT BEDSIDE. PT DENIES NEEDS AT THIS IMTE. WILL GIVE REPORT ON PT CONDTION FOR THE DAY.
[2017-05-07 19:00] VITALS: BP 118/63
--- NOTE | 2017-05-07 19:43 | NUR ---
PT ASLEEP. RESPIRATIONS EVEN AND UNLABORED. NO S/S OF DISTRESS. IV LEFT FOREARM 7ML/HR HEPARIN GTT. PT BED LOW AND CALL LIGHT IN REACH. WILL CPOC
[2017-05-08] VITALS: BP 133/68
--- NOTE | 2017-05-08 02:45 | NUR ---
PT ASLEEP. RESPIRATIONS EVEN AND UNLABORED. BIPAP ON. RESPONDS TO VERBAL STIMULI. PT DENIES ANY NEEDS. NO S/S OF DISTRESS. WILL CPOC
[2017-05-08 04:00] VITALS: BP 152/69
[2017-05-08 05:47] LABS: BASOPHILS 0.1 % (0-2); EOSINOPHILS 0 % (0-7); HEMATOCRIT 38.3 % (36.0-48.0); HEMOGLOBIN 12.2 g/dL (12-16); MCH 29.8 pg (26.0-34.0); MCHC 31.9 g/dL (31.0-37.0); MCV 93.4 fL (80.0-100.0); MEAN PLATELET VOLUME 10.1 fL (7.4-10.4); MONOCYTES 3.8 % (2-11); NEUTROPHILS 83.1 % (40-80); PLATELET COUNT 300 10x3/uL (130-400); RDW 15.4 % (11.5-14.5); WBC 11.4 10x3/uL (4.8-10.8)
[2017-05-08 05:59] LABS: CALC OSMOLALITY 287 mosm/kg (275-300); CALCIUM 9.1 mg/dL (8.5-10.1); CHLORIDE - SERUM 107 mmol/L (98-107); CREATININE - SERUM 0.8 mg/dL (0.6-1.3); GLUCOSE 142 mg/dL (74-106); POTASSIUM - SERUM 4.2 mmol/L (3.5-5.1); SODIUM 142 mmol/L (136-145); eGFR NON AFRICAN AMERICAN 80 mL/min (90-120)
[2017-05-08 06:00] LABS: UREA NITROGEN 20 mg/dL (7-18)
--- NOTE | 2017-05-08 07:51 | NUR ---
PT SITTING UP IN BED WATCHING TV, DENIES NEEDS WILL CONT TO MONITOR
[2017-05-08 08:00] VITALS: BP 142/69
[2017-05-08 12:20] VITALS: BP 136/70
--- NOTE | 2017-05-08 17:36 | NUR ---
PT SITTING UP IN BED EATING DINNER DENIES NEEDS WILL CONT TO MONITOR
--- NOTE | 2017-05-08 19:23 | NUR ---
PT RESTING IN BED. TECH IN ROOM DOING VITAL SIGNS. PT IS ON 2L OF O2 NC. PT AAO. LEFT HAND IV S/L. PT DENIES ANY NEEDS AT THIS TIME. NO S/S OF DISTRESS. WILL CPOC
--- NOTE | 2017-05-08 20:58 | NUR ---
PT RESTING IN BED. ASKS FOR A MOTRIN. PT EATING A SNACK. DENIES ANY NEEDS. NO S/S OF DISTRESS. WILL CPOC
[2017-05-08 22:34] VITALS: BP 115/54
[2017-05-09 01:39] VITALS: BP 108/58
[2017-05-09 05:33] LABS: BASOPHILS 0 % (0-2); EOSINOPHILS 0 % (0-7); HEMATOCRIT 37.6 % (36.0-48.0); HEMOGLOBIN 11.7 g/dL (12-16); IMMATURE GRANULOCYTES 1.2 % (0-5); LYMPHOCYTES 21.4 % (15-50); MCH 28.9 pg (26.0-34.0); MCHC 31.1 g/dL (31.0-37.0); MCV 92.8 fL (80.0-100.0); MONOCYTES 6.2 % (2-11); NEUTROPHILS 71.2 % (40-80); PLATELET COUNT 300 10x3/uL (130-400); RBC 4.05 10x6/uL (4.00-5.40); RDW 15.3 % (11.5-14.5); WBC 10.8 10x3/uL (4.8-10.8)
--- NOTE | 2017-05-09 05:33 | NUR ---
PT SITTING UP DRINKING A CUP OF COFFEE. PT ON 2L OF O2 NC. MOTRIN GIVEN FOR PAIN. PT DENIES ANY NEEDS. NO S/S OF DISTRES. WILL CPOC
[2017-05-09 05:50] LABS: CALC OSMOLALITY 285 mosm/kg (275-300); CALCIUM 8.8 mg/dL (8.5-10.1); CHLORIDE - SERUM 107 mmol/L (98-107); CREATININE - SERUM 0.8 mg/dL (0.6-1.3); GLUCOSE 105 mg/dL (74-106); POTASSIUM - SERUM 4.1 mmol/L (3.5-5.1); SODIUM 142 mmol/L (136-145); UREA NITROGEN 20 mg/dL (7-18); eGFR NON AFRICAN AMERICAN 80 mL/min (90-120)
[2017-05-09 05:51] VITALS: BP 117/64
[2017-05-09 08:00] VITALS: BP 158/84
[2017-05-09 12:00] VITALS: BP 136/64
[2017-05-09 16:00] VITALS: BP 145/69
[2017-05-09] MEDS ORDERED: PREDNISONE10 MG PO (16:40)
[2017-05-09] MEDS ORDERED: LEVAQUIN750 MG PO (16:40)
--- NOTE | 2017-05-09 19:35 | NUR ---
ROUNDING NOTE: PT W/ NEBULIZER RUNNING AT CHANGE OF SHIFT ROUNDING. PT IS A,A,OX3 AND STATES THAT SHE IS FEELING MUCH BETTER. SHE IS HOPING TO BE ABLE TO GO HOME TOMORROW. CURRENTLY ON 2L OXYGEN VIA NASAL CANNULA, WHICH IS PT'S BASELINE. SHE HAS CPAP FOR HS. LEFT HAND W/ SALINE LOC. DENIES NEEDS, WILL MONITOR.
[2017-05-09 20:25] VITALS: BP 125/58
[2017-05-10 00:51] VITALS: BP 114/54
[2017-05-10 05:19] VITALS: BP 137/69
--- NOTE | 2017-05-10 05:55 | NUR ---
PT HAS BEEN SLEEPING THROUGHOUT SHIFT. PLAN IS TO BE D/C'D LATER THIS MORNING. NO ISSUES OR CONCERNS. WILL CONT TO MONITOR.
[2017-05-10 06:29] LABS: BASOPHILS 0.1 % (0-2); EOSINOPHILS 0.1 % (0-7); HEMATOCRIT 39.3 % (36.0-48.0); HEMOGLOBIN 12.4 g/dL (12-16); IMMATURE GRANULOCYTES 2.2 % (0-5); LYMPHOCYTES 19.4 % (15-50); MCH 29.2 pg (26.0-34.0); MCHC 31.6 g/dL (31.0-37.0); MCV 92.5 fL (80.0-100.0); MEAN PLATELET VOLUME 9.8 fL (7.4-10.4); MONOCYTES 5.5 % (2-11); NEUTROPHILS 72.7 % (40-80); PLATELET COUNT 318 10x3/uL (130-400); RBC 4.25 10x6/uL (4.00-5.40); RDW 15.2 % (11.5-14.5); WBC 11.5 10x3/uL (4.8-10.8)
[2017-05-10 06:48] LABS: CALC OSMOLALITY 280 mosm/kg (275-300); CALCIUM 9.1 mg/dL (8.5-10.1); CARBON DIOXIDE 29.5 mmol/L (21.0-32.0); CHLORIDE - SERUM 103 mmol/L (98-107); CREATININE - SERUM 0.8 mg/dL (0.6-1.3); GLUCOSE 116 mg/dL (74-106); POTASSIUM - SERUM 4.2 mmol/L (3.5-5.1); SODIUM 139 mmol/L (136-145); UREA NITROGEN 17 mg/dL (7-18); eGFR NON AFRICAN AMERICAN 80 mL/min (90-120)
--- NOTE | 2017-05-10 07:54 | NUR ---
ASSESSMENT DONE. PATIENT STATES NO NEEDS AT THIS TIME.
[2017-05-10 08:21] VITALS: BP 118/74
--- NOTE | 2017-05-10 09:57 | NUR ---
Patient Name: JUANPABLO AMEZCUA Admission Status: Urgent Accout number: [id number] Admission Date: 05-05-2017 : 1965 Admission Diagnosis:UNSPECIFIED ASTHMA WITH (ACUTE) EXACERBATION Attending: DAT DUTTON Current LOS: 5 Anticipated DC Date: 05-10-2017 Planned Disposition: Home Primary Insurance: MEDICAID [place] Discharge Planning Comments: * Is the patient Alert and Oriented? Yes 0 * How many steps to enter\exit or inside your home? 3 0 * PCP DR DUTTON 0 * [facility] 0 * Preadmission Environment Home with Family 0 * ADLs Independent 0 * Equipment CPAP Nebulizer Oxygen 0 * Other Equipment HOME OXYGEN AT [facility] PATIENT - MEDICAL EQUIPMENT PROVIDER 0 * List name and contact numbers for known caregivers / representatives who currently or will assist patient after discharge: SHI RODRIGUEZ, MOTHER, 0 * Community resources currently utilized None 0 * Please name any agencies selected above. NONE 0 * Additional services required to return to the preadmission environment? No 0 * Can the patient safely return to the preadmission environment? Yes 0 * Has this patient been hospitalized within the prior 30 days at any hospital? No 0 CM MET WITH PT IN ROOM TO DISCUSS DISCHARGE PLANNING AND NEEDS. PT REPORTS LIVING AT HOME INDEPENDENTLY WITH HER MOTHER. PT HAS CPAP, NEBULIZER AND HOME OXYGEN THROUGH [facility]. PT HAS NO OUTSIDE SERVICES ASSISTING IN THE HOME. CM DISCUSSED AVAILABILITY OF HOME HEALTH, REHAB SERVICES AND MEDICAL EQUIPMENT. PT DENIES DISCHARGE NEEDS, REPORTS SHE HAS BEEN PROPING WITH PILLOWS AT HOME TO KEEP A COMFORTABLE SLEEPING POSITION THAT ASSISTS WITH BREATHING AND WANTS A HOSPITAL BED. CHART REVIEWED, NOT NOTES TO SUPPORT THE NEED FOR BED; CM EXPLAINED THAT PT WILL NEED TO CONSULT HER PRIMARY CARE DOCTOR FOR THE NEEDED DOCUMENTION TO SUPPORT THE NEED OF A HOSPITAL BED AT HOME AND ORDER FOR THE BED. CM OBSERVED THAT PT WILL BE HAVING [facility] FOLLOW UP, CM INFORMED PT THAT SHE MAY SPEAK TO THE ELECTRONIC COMPONENTS ASSEMBLER FROM [facility] REGARDING THE REQUEST TO SEE IF THE ELECTRONIC COMPONENTS ASSEMBLER CAN ASSIST WITH THE NEEDED DOCUMENTAION AND ORDERS. PT REPORTS THAT SHE HAS BEEN UNABLE TO AFFORD SINGULAIR AND HER MOTHER HAS BEEN PROVIDING THE MEDICATION FOR HER. CM PROVIDED PT WITH THE PATIENT ASSISTANCE PROGRAM PHONE NUMBER FOR [employer] TO APPLY FOR POSSIBLE ASSISTANCE. PT REPORTS HER MOTHER WILL PICK HER UP FOR DISCHARGE HOME, DENIES FURTHER NEEDS. RESIDENTIAL CARE FACILITY MANAGER NURSE NOTIFIED. Water Service Dispatcher: Moses Menon
--- NOTE | 2017-05-10 10:37 | NUR ---
D/C PLANS NOTED. WILL CONT. PLAN OF CARE.
--- NOTE | 2017-05-10 10:49 | NUR ---
PATIENT DISCHARGE HOME PER PERSONAL VEHICLE.
[2017-05-12 14:24] LABS: AEROBE ID Final report (())
--- NOTE | 2017-05-21 10:35 | CN ---
PATIENT NAME:JUANPABLO RHODES MEDICAL RECORD: [id number] : [birth year] LOCATION:[facility].[id number] ADMIT DATE: 05/05/17 ACCOUNT: [id number] CONSULTING PHYSICIAN: DONTA LOPEZ MD REFERRING PHYSICIAN: DAT DUTTON MD DATE OF CONSULTATION: 05/06/2017 CONSULT REQUESTING PHYSICIAN: Nadeem Mariscal MD REASON FOR CONSULTATION: Acute exacerbation of COPD, asthma. HISTORY OF PRESENT ILLNESS: Ms. Rhodes is a 51-year-old female who has history of asthma, possible COPD, and obstructive sleep apnea. According to the patient, she is sick for the last 3 days. She has shortness of breath with mild exertion. She was coughing. She was wheezing. She has fever of 99. She was seen in the PCP office and directly admitted for asthma exacerbation. REVIEW OF THE SYSTEMS: Mainly in the history of present illness. PAST MEDICAL HISTORY: 1. Asthma. 2. Pulmonary embolism. 3. History of pneumonia. 4. Morbid obesity. 5. Obstructive sleep apnea. PAST SURGICAL HISTORY: Cholecystectomy. ALLERGIES: SHE IS ALLERGIC TO SULFA, CODEINE, AND CEFEPIME. PRESENT MEDICATIONS: She is on Advair Diskus, methylprednisolone IV, and Levaquin IV. PERSONAL AND SOCIAL HISTORY: The patient is an ex-smoker. She is nondrinker. FAMILY HISTORY: Noncontributory. PHYSICAL EXAMINATION: GENERAL: Now, the patient is lying comfortably in bed. She is not in any acute distress. VITAL SIGNS: Blood pressure 111/59, pulse is 97, respiration is 18, temperature is 97.9, and SpO2 is 93% on room air. HEENT: Conjunctivae are pink. Sclerae nonicteric. NECK: Supple. No JVD. CHEST: Chest excursion is minimal on both sides. There is no wheeze and no rale. HEART: Rhythm regular. Normal sounds. No murmur. ABDOMEN: Soft. Bowel sounds present. No hepatosplenomegaly. RECTAL: Deferred. EXTREMITIES: No cyanosis. No clubbing. No pedal edema. SKIN: The skin is warm. Normal turgor. CENTRAL NERVOUS SYSTEM: The patient is awake and alert. There is no obvious cranial nerve abnormality. The gait was not tested. CHEST RADIOGRAPH: There is basal atelectasis. No consolidation as such. CONSULT REPORT [id number] GALLO OTHER LABORATORY DATA: CBC; WBC 8.6, hemoglobin 12.1, hematocrit 37.2, and platelet count is 262. Chemistry; sodium 137, potassium is 4, BUN is 11, creatinine 0.8, and glucose 103. IMPRESSION: 1. Acute asthma, COPD exacerbation. 2. Tracheobronchitis. 3. Asthma-COPD overlap syndrome. 4. Febrile illness, most likely secondary to tracheobronchitis. 5. History of pulmonary embolism, on Eliquis. 6. Obstructive sleep apnea. RECOMMENDATIONS: 1. We will continue the home medications. 2. Methylprednisolone IV, Levaquin IV, Brovana and budesonide nebulizer, and albuterol/ipratropium nebulizer. 3. Singulair 10 mg daily. 4. Mucinex DM. 5. Followup chest radiograph. Dr. Mariscal, thank you for involving me in the care of Ms. Rhodes. TRANSINT:[id number] Voice Confirmation ID: [id number] DOCUMENT ID: [id number] DONTA LOPEZ MD at 1035 CC: DAT DUTTON MD [id number] DICTATION DATE: 05/06/17 1427 ARCHITECTURE INSTRUCTOR: 05/06/171921 DIS IN 05/10/17 [facility] [address] [place] [address]
--- NOTE | 2017-06-15 10:49 | DS ---
PATIENT:JUANPABLO AMEZCUA :67 MEDICAL RECORD: [id number] DISCHARGE SUMMARY ADMISSION DATE: 05/05/17 DISCHARGE DATE: 05/10/17 This is a discharge dated 05/10/2017, from the inpatient hospital. DISCHARGE DIAGNOSES: 1. Acute exacerbation of asthma. 2. Chronic obstructive pulmonary disease. 3. Possible pleurisy. 4. Tracheobronchitis. 5. Obstructive sleep apnea. 6. History of pulmonary embolism. CONSULTS THIS HOSPITALIZATION: Pulmonary with Brandon Hodge MD HOSPITAL COURSE: Full H&P is located elsewhere on the chart on this 51-year-old female who was admitted with acute exacerbation of asthma with fever. She was started on IV antibiotics, IV steroids and nebulized medication. She continued her home dose Eliquis with history of PE. Pulmonary was consulted. She was seen by Dr. Hodge. She had Levaquin for antibiotic coverage. She was monitored radiologically. Her symptoms improved and she was considered stable for discharge on 05/10/2017. DISCHARGE MEDICATIONS: As per discharge medication reconciliation. DISCHARGE DISPOSITION: The patient is discharged home. She will continue her current diet and level of activity. She will be seen by [facility] house calls. She will follow up with Dr. Hodge from pulmonary in 4 to 6 weeks with a chest x-ray and she will follow with primary care as directed. At least 30 minutes was spent in this discharge activity. TRANSINT:[id number] Voice Confirmation ID: [id number] DOCUMENT ID: [id number] Dictated By: YARELI LLAMAS I have interviewed/examined the above patient and agree with these documented findings. ROBBIE LAMAS MD at 1358 at 1049 CC: [id number] DICTATION DATE: 06/06/17 1705 GRAIN OPERATIONS MANAGER: 06/06/17 1831 DIS IN 05/10/[address] [facility] [address] [place] [address]
== END 2017-05-10 10:50 | disposition home or self-care (01) | DRG 191 ==
LOC: D.M2 17:23
PROVIDERS: Family Medicine; ADMIT Emergency Medicine
DX: J44.1 Chronic obstructive pulmonary disease with (acute) exacerbation (principal); Z68.43 Body mass index [BMI] 50.0-59.9, adult; M35.1 Other overlap syndromes; G47.33 Obstructive sleep apnea (adult) (pediatric); Z86.711 Personal history of pulmonary embolism; Z79.01 Long term (current) use of anticoagulants; E66.01 Morbid (severe) obesity due to excess calories; Z87.891 Personal history of nicotine dependence

== ENCOUNTER 2017-12-07 19:17 | Observation (INO) | payer OTHER ==
[~2017-12-07] VITALS: Ht 172.7 cm; Wt 172.7 kg
--- NOTE | ~2017-12-07 | EC ---
PATIENT:JUANPABLO AMEZCUA DATE OF SERVICE: 12/07/17 SEX: F MEDICAL RECORD: [id number] DATE OF : 67 LOCATION:D.[facility] Nicole221 AGE OF PATIENT: 52 ADMISSION DATE: 12/07/17 REFERRING PHYSICIAN: INTERPRETING PHYSICIAN: DARSHAN VARGAS MD ECHOCARDIOGRAM REPORT ECHO CHARGES 4 ECHO COMPLETE Date: 12/09 CLINICAL DIAGNOSIS: CHF ECHOCARDIOGRAPHIC MEASUREMENTS (adult normal given) AC root (d.<3.7cm) 3.8 cm LV Septum d (<1.2 cm> 1.4 cm Valve Excursion 2.1 cm LV Septum (systole) 1.6 cm Left Atria (s.<4.0cm> 4.2 cm LVPW d(<1.2cm) 1.4 cm RV (d.<2.3cm) 4.4 cm LVPW (sytole) 2.0 cm LV diastole(<5.6CM) 6.1 cm MV E-F(>70mm/sec) cm LV systole 4.2 cm LVOT Diameter 2.3 cm MV exc.(>10mm) 1.5 cm Est.ejection fraction (50-75%) % DOPPLER: LVIT cm/sec A 82.0 cm/sec E 106 cm/sec LA cm/sec RVSP 23 mmHg LVOT 107 cm/sec AOP1/2T m/s Asc. Ao 148 cm/sec RVOT 138 cm/sec RA cm/sec PA 173 cm/sec AV Gradient Peak 8.79 mmHg AV Mean 5.14 mmHg AV Area 3.4 cm MV Gradient Peak 7.55 mmHg MV Mean 2.67 mmHg MV Area cm COMMENTS: Shop Mechanic: Kimmie NULL Marketing Trainee: 1 Dr. Vargas TAPE# PACS Pericardial Effusion N DATE OF SERVICE: 12/09/2017 PROCEDURE: Echocardiogram. FINDINGS: 1. Left ventricular chamber size is within normal limits. Left ventricular systolic function is normal. Overall ejection fraction estimated at 55%. 2. The left atrium is mildly dilated at 4.2 cm. Right atrium and right ventricle chamber sizes are as well mildly dilated. 3. Valvular structures have normal structure and motion. ECHOCARDIOGRAM REPORT [id number] JUANPABLO AMEZCUA 4. Doppler interrogation reveals only trace to mild tricuspid regurgitation, no other valvular insufficiency or stenosis. Pulmonary systolic pressure is normal, estimated at 23 mmHg. 5. No evidence of pericardial effusion or left ventricular thrombus. TRANSINT:[id number] Voice Confirmation ID: [id number] DOCUMENT ID: [id number] DARSHAN VARGAS MD at 0751 CC: [id number] DICTATION DATE: 12/09/17 1211 CLINICAL TRIALS MANAGER: 12/09/17 1232 DIS IN 12/09/17 [place] [id number] [place] [address]
[2017-12-07 20:03] LABS: BASOPHILS 0.2 % (0-2); EOSINOPHILS 2.5 % (0-7); HEMATOCRIT 40.1 % (36.0-48.0); HEMOGLOBIN 13.3 g/dL (12-16); IMMATURE GRANULOCYTES 0.2 % (0-5); LYMPHOCYTES 27.8 % (15-50); MCH 30.3 pg (26.0-34.0); MCHC 33.2 g/dL (31.0-37.0); MCV 91.3 fL (80.0-100.0); MEAN PLATELET VOLUME 9.8 fL (7.4-10.4); MONOCYTES 3.7 % (2-11); NEUTROPHILS 65.6 % (40-80); PLATELET COUNT 283 10x3/uL (130-400); RBC 4.39 10x6/uL (4.00-5.40); RDW 14.5 % (11.5-14.5); WBC 10.5 10x3/uL (4.8-10.8)
[2017-12-07 20:13] LABS: APTT 24.9 SECONDS (22.8-39.4); INR 0.93 (0.85-1.17); PROTIME 12.1 SECONDS (11.6-15.0)
[2017-12-07 20:14] LABS: D-DIMER-QUANTITATIVE 0.67 ug/mLFEU (0.20-0.54)
[2017-12-07 20:18] LABS: ALBUMIN 3.5 g/dL (3.4-5.0); ALKALINE PHOSPHATASE 96 U/L (46-116); ALT (SGPT) 34 U/L (10-68); CALC OSMOLALITY 274 mosm/kg (275-300); CALCIUM 9.3 mg/dL (8.5-10.1); CARBON DIOXIDE 27.7 mmol/L (21.0-32.0); CHLORIDE - SERUM 102 mmol/L (98-107); CREATININE - SERUM 0.9 mg/dL (0.6-1.3); GLUCOSE 104 mg/dL (74-106); POTASSIUM - SERUM 4.3 mmol/L (3.5-5.1); PROTEIN - SERUM 8.3 g/dL (6.4-8.2); SODIUM 137 mmol/L (136-145); UREA NITROGEN 14 mg/dL (7-18); eGFR NON AFRICAN AMERICAN 70 mL/min (90-120)
[2017-12-07 20:35] LABS: CKMB 0.5 U/L (0.0-3.6); CREATINE KINASE 69 UL (21-215); TROPONIN-I < 0.017 ng/mL (0.000-0.060)
[2017-12-08] VITALS (7 sets, daily range): BP systolic 116–198; BP diastolic 56–85; Ht 172.7 cm; Wt 172.7 kg
[2017-12-08 06:19] LABS: BASOPHILS 0.2 % (0-2); EOSINOPHILS 2.8 % (0-7); HEMATOCRIT 37.9 % (36.0-48.0); HEMOGLOBIN 12.3 g/dL (12-16); IMMATURE GRANULOCYTES 0.2 % (0-5); LYMPHOCYTES 30.9 % (15-50); MCH 29.7 pg (26.0-34.0); MCHC 32.5 g/dL (31.0-37.0); MCV 91.5 fL (80.0-100.0); MONOCYTES 4.2 % (2-11); NEUTROPHILS 61.7 % (40-80); PLATELET COUNT 266 10x3/uL (130-400); RBC 4.14 10x6/uL (4.00-5.40); RDW 14.7 % (11.5-14.5); WBC 8.7 10x3/uL (4.8-10.8)
[2017-12-08 06:32] LABS: ALBUMIN 3.1 g/dL (3.4-5.0); ALKALINE PHOSPHATASE 85 U/L (46-116); ALT (SGPT) 34 U/L (10-68); CALC OSMOLALITY 277 mosm/kg (275-300); CALCIUM 8.8 mg/dL (8.5-10.1); CARBON DIOXIDE 29.5 mmol/L (21.0-32.0); CHLORIDE - SERUM 103 mmol/L (98-107); CREATININE - SERUM 0.7 mg/dL (0.6-1.3); GLUCOSE 103 mg/dL (74-106); PROTEIN - SERUM 7.4 g/dL (6.4-8.2); SODIUM 139 mmol/L (136-145); UREA NITROGEN 13 mg/dL (7-18); eGFR NON AFRICAN AMERICAN > 90 mL/min (90-120)
[2017-12-08 16:55] LABS: CKMB 0.5 U/L (0.0-3.6); CREATINE KINASE 84 UL (21-215); PRO BNP 31 pg/mL (0-125); TROPONIN-I < 0.017 ng/mL (0.000-0.060)
[2017-12-08 22:54] LABS: CKMB 0.1 U/L (0.0-3.6); CREATINE KINASE 90 UL (21-215)
[2017-12-08 22:55] LABS: TROPONIN-I < 0.017 ng/mL (0.000-0.060)
[2017-12-09 04:45] VITALS: BP 128/68
[2017-12-09 04:51] LABS: BASOPHILS 0.4 % (0-2); EOSINOPHILS 2.8 % (0-7); HEMATOCRIT 38.1 % (36.0-48.0); HEMOGLOBIN 12.3 g/dL (12-16); IMMATURE GRANULOCYTES 0.1 % (0-5); LYMPHOCYTES 28.8 % (15-50); MCH 29.6 pg (26.0-34.0); MCHC 32.3 g/dL (31.0-37.0); MCV 91.6 fL (80.0-100.0); MONOCYTES 4.7 % (2-11); NEUTROPHILS 63.2 % (40-80); PLATELET COUNT 263 10x3/uL (130-400); RBC 4.16 10x6/uL (4.00-5.40); RDW 14.5 % (11.5-14.5); WBC 7.6 10x3/uL (4.8-10.8)
[2017-12-09 05:02] LABS: CALC OSMOLALITY 280 mosm/kg (275-300); CALCIUM 8.9 mg/dL (8.5-10.1); CARBON DIOXIDE 31.3 mmol/L (21.0-32.0); CHLORIDE - SERUM 103 mmol/L (98-107); CKMB 0.7 U/L (0.0-3.6); CREATINE KINASE 81 UL (21-215); CREATININE - SERUM 0.7 mg/dL (0.6-1.3); GLUCOSE 108 mg/dL (74-106); SODIUM 141 mmol/L (136-145); TROPONIN-I < 0.017 ng/mL (0.000-0.060); UREA NITROGEN 11 mg/dL (7-18); eGFR NON AFRICAN AMERICAN > 90 mL/min (90-120)
[2017-12-09 08:04] VITALS: BP 129/63
[2017-12-09 11:07] VITALS: BP 111/66
[2017-12-09 15:41] VITALS: BP 124/64
== END 2017-12-09 19:18 | disposition home or self-care (01) ==
LOC: D.ER 19:17 → D.MS 23:44 → OBSVTIME 23:44 → D.EDHOLD 23:44 → D.MS 12-09 19:18
PROVIDERS: Family Medicine; Internal Medicine Nephrology
DX: I50.9 Heart failure, unspecified (principal); J44.1 Chronic obstructive pulmonary disease with (acute) exacerbation; E66.01 Morbid (severe) obesity due to excess calories; Z68.43 Body mass index [BMI] 50.0-59.9, adult

== ENCOUNTER → 2018-08-09 07:40 | Outpatient (CLI) | payer OTHER ==
[2017-12-08 15:58] VITALS: BMI 57.9
== END | disposition home or self-care (01) ==
LOC: D.RT 07:40
DX: J44.9 Chronic obstructive pulmonary disease, unspecified (principal); J98.11 Atelectasis

== ENCOUNTER → 2018-10-18 09:52 | Outpatient (CLI) | payer OTHER ==
[2017-12-08 15:58] VITALS: BMI 57.9
== END | disposition home or self-care (01) ==
LOC: D.CT 09:52
PROVIDERS: ATTEND Nurse Practitioner
DX: R19.03 Right lower quadrant abdominal swelling, mass and lump (principal)

== ENCOUNTER 2018-12-31 17:41 | Emergency (ER) | payer OTHER ==
[~2018-12-31] VITALS: Ht 172.7 cm; Wt 173.6 kg
[2018-12-31 17:50] VITALS: Ht 172.7 cm; Wt 173.6 kg
[2018-12-31] MEDS ORDERED: LISINOPRIL5 MG PO (17:52)
[2018-12-31] MEDS ORDERED: BUPROPION HCL100 M1 (17:52)
[2018-12-31] MEDS ORDERED: ADIPEX-P37.5 MG PO (17:52)
[2018-12-31 18:32] LABS: BASOPHILS 0.2 % (0-2); EOSINOPHILS 1.5 % (0-7); HEMATOCRIT 39.2 % (36.0-48.0); HEMOGLOBIN 13.2 g/dL (12-16); IMMATURE GRANULOCYTES 0.1 % (0-5); LYMPHOCYTES 16.6 % (15-50); MCH 29.9 pg (26.0-34.0); MCHC 33.7 g/dL (31.0-37.0); MCV 88.7 fL (80.0-100.0); MEAN PLATELET VOLUME 9.4 fL (7.4-10.4); MONOCYTES 8.1 % (2-11); NEUTROPHILS 73.5 % (40-80); PLATELET COUNT 255 10x3/uL (130-400); RBC 4.42 10x6/uL (4.00-5.40); RDW 14.6 % (11.5-14.5); WBC 8.6 10x3/uL (4.8-10.8)
[2018-12-31 18:33] LABS: APPEARANCE SL CLDY (CLEAR); BILIRUBIN NEGATIVE (NEGATIVE); COLOR YELLOW (YELLOW); GLUCOSE NEGATIVE (NEGATIVE); KETONE NEGATIVE (NEGATIVE); NITRITE NEGATIVE (NEGATIVE); PROTEIN TRACE mg/dL (NEGATIVE); UROBILINOGEN NORMAL (NORMAL)
[2018-12-31 18:34] LABS: BACTERIA FEW /hpf (NONE SEEN); EPITHELIAL CELLS 0-5 /hpf (0-5); RED CELLS - URINE 0-5 /hpf (0-5); WHITE CELLS - URINE 0-5 /hpf (0-5)
[2018-12-31 18:56] LABS: ALBUMIN 3.5 g/dL (3.4-5.0); ALKALINE PHOSPHATASE 101 U/L (46-116); ALT (SGPT) 34 U/L (10-68); BILIRUBIN - TOTAL 0.45 mg/dL (0.2-1.3); CALC OSMOLALITY 267 mosm/kg (275-300); CARBON DIOXIDE 27.1 mmol/L (21.0-32.0); CHLORIDE - SERUM 97 mmol/L (98-107); CREATININE - SERUM 0.9 mg/dL (0.6-1.3); GLUCOSE 115 mg/dL (74-106); PROTEIN - SERUM 8.7 g/dL (6.4-8.2); SODIUM 134 mmol/L (136-145); UREA NITROGEN 10 mg/dL (7-18); eGFR NON AFRICAN AMERICAN 70 mL/min (90-120)
[2018-12-31 19:00] LABS: AMYLASE - SERUM 23 U/L (25-115); LIPASE 106 U/L (73-393)
[2018-12-31 19:01] LABS: TROPONIN-I < 0.017 ng/mL (0.000-0.060)
[2018-12-31] MEDS ORDERED: ZOFRAN ODT4 MG/UDTAB PO (20:24)
[2018-12-31] MEDS ORDERED: LEVAQUIN750 MG PO (20:24)
[2018-12-31 21:06] VITALS: BP 140/72
== END 2018-12-31 21:07 | disposition home or self-care (01) ==
LOC: D.ER 17:41
PROVIDERS: Emergency Medicine
DX: J18.0 Bronchopneumonia, unspecified organism (principal)

== ENCOUNTER → 2019-04-05 13:23 | Outpatient (CLI) | payer MEDICARE ==
[2018-12-31 17:50] VITALS: BMI 58.2
[~2019-04-05 13:23] MED LIST changes: +ADIPEX-P37.5 MG PO; +BUPROPION HCL100 M1; +LISINOPRIL5 MG PO; +ZOFRAN ODT4 MG/UDTAB PO
== END | disposition home or self-care (01) ==
LOC: D.CT 13:23
PROVIDERS: ATTEND Nurse Practitioner
DX: R31.29 Other microscopic hematuria (principal)

== ENCOUNTER → 2019-04-26 19:08 | Outpatient (CLI) | payer MEDICARE, MEDICAID ==
[2018-12-31 17:50] VITALS: BMI 58.2
== END | disposition home or self-care (01) ==
LOC: D.LABREF 19:08
PROVIDERS: ATTEND Urology
DX: R31.9 Hematuria, unspecified (principal)

== ENCOUNTER → 2019-05-10 20:51 | Outpatient (CLI) | payer MEDICARE ==
[2018-12-31 17:50] VITALS: BMI 58.2
== END | disposition home or self-care (01) ==
LOC: D.LABREF 20:51
PROVIDERS: ATTEND Urology
DX: Z00.00 Encounter for general adult medical examination without abnormal findings (principal)

== ENCOUNTER → 2019-05-18 10:22 | Outpatient (CLI) | payer MEDICARE ==
[2018-12-31 17:50] VITALS: BMI 58.2
== END | disposition home or self-care (01) ==
LOC: D.CT 10:22
PROVIDERS: ATTEND Urology
DX: R31.21 Asymptomatic microscopic hematuria (principal)

== ENCOUNTER → 2019-05-24 19:00 | Outpatient (CLI) | payer MEDICARE ==
[2018-12-31 17:50] VITALS: BMI 58.2
== END | disposition home or self-care (01) ==
LOC: D.LABREF 19:00
PROVIDERS: ATTEND Urology
DX: R31.9 Hematuria, unspecified (principal)

== ENCOUNTER 2019-06-29 10:35 | Day surgery (SDC) | payer MEDICARE ==
[2019-06-28 13:00] LABS: HEMATOCRIT 39.3 % (36.0-48.0); HEMOGLOBIN 12.6 g/dL (12-16); MCH 29.9 pg (26.0-34.0); MCHC 32.1 g/dL (31.0-37.0); MCV 93.1 fL (80.0-100.0); MEAN PLATELET VOLUME 8.9 fL (7.4-10.4); RBC 4.22 10x6/uL (4.00-5.40); RDW 14.2 % (11.5-14.5); WBC 10.1 10x3/uL (4.8-10.8)
[2019-06-28 13:21] LABS: ANION GAP 13.3 mmol/L (8-16); CALCIUM 9.2 mg/dL (8.5-10.1); CARBON DIOXIDE 29.6 mmol/L (21.0-32.0); POTASSIUM - SERUM 3.9 mmol/L (3.5-5.1)
[~2019-06-29] VITALS: Ht 175.3 cm; Wt 156.9 kg
[~2019-06-29 10:35] MED LIST changes: -BUPROPION HCL100 M1; +BUPROPION HCL150 M1 PO; +GABAPENTIN100 MG PO; +K-TAB10 MEQ PO; +SYNTHROID150 MCG PO
[2019-06-29 12:34] VITALS: BP 136/74; Ht 175.3 cm; Wt 156.9 kg
--- NOTE | 2019-06-29 18:30 | NUR ---
PATIENT AMBULATES TO PULLS PACKING OUT, VOIDS MODERATE AMOUNT PINK-TINGED URINE IN TOILET. AMBULATES SLOWLY BUT WITHOUT ASSISTANCE. RIGHT WRIST PIV DC'D WITH TIP INTACT. PATIENT DRESSING IN PERSONAL CLOTHING WITH DAUGHTER'S ASSISTANCE
--- NOTE | 2019-06-29 18:40 | NUR ---
DISCHARGE INSTRUCTIONS REVIEWED WITH PATIENT AND DAUGHTER, PATIENT SITTING IN CHAIR IN ROOM, DENIES COMPLAINTS, AWAITING SON'S ARRIVAL TO PROVIDE DC TRANSPORTATION
--- NOTE | 2019-06-30 09:19 | OP ---
PATIENT NAME: JUANPABLO AMEZCUA MEDICAL RECORD: [id number] :67 LOCATION:.[facility] ADMISSION DATE: SURGEON: RAMA FREITAS MD DATE OF OPERATION: 06/29/2019 SURGEON: Rama Freitas MD ANESTHESIA: General anesthesia by Jean Marquez MD DIAGNOSES: Microscopic hematuria, female stress urinary incontinence. PROCEDURES: 1. Cystoscopy. 2. Pubovaginal sling with [employer] Obtryx mesh graft. FINDINGS: Cystoscopy shows bladder inflammation with no bladder tumors. Single ureteral orifices bilaterally. There is no bladder injury. BLOOD LOSS: 50 mL. CLINICAL HISTORY: This is a 53-year-old female, who is being worked up for microscopic hematuria. She had a positive urine culture, which we treated with antibiotics. She had a CT scan, which showed abdominal diastasis and an infraumbilical hernia. Otherwise, the kidneys were normal. She also has stress urinary incontinence, which showed urethral hypermobility and a positive Pradeep test. There is a grade I cystocele on examination. She comes today to have cystoscopy to complete the hematuria workup. Also, she will have a pubovaginal sling inserted. SHE IS ALLERGIC TO CODEINE AND CEFEPIME. She was given [employer] plant floor automation manager to the OR. DESCRIPTION OF PROCEDURE: The patient was given induction of general anesthesia in supine position. She was then placed into lithotomy position and shaved, prepped and draped. A 16-Burmese Fonseca catheter was put into the bladder and put to bag drainage. A weighted speculum was used to hold the posterior vaginal wall down. The labia majora were retracted laterally using stay sutures of #2 nylon. The anterior vaginal wall in the periurethral region was then infiltrated with Pitressin solution. Twenty units of vasopressin was dissolved in 100 mL of injectable normal saline. The solution was used for hydrodissection. A T-shaped incision was made in the anterior vaginal wall. The crossbar of the T was placed about 1 cm away from the urethral meatus. The vertical bar of the T runs along the anterior vaginal wall midline under the urethra. Dissection was then continued using Metzenbaum scissors to enter the plane between the urethra and the anterior vaginal wall. Laterally, we entered through the pubocervical fascia. The obturator membrane was cleared on each side. At this point, we landmarked with the insertion of the transobturator passage of the helical trocars for the [employer] Obtryx system. The landmark is just inferior to the insertion of the adductor longus muscle onto the descending pubic ramus. A sagar was made here on each side of the groin with a marking pen. A stab incision was made with a #15 blade. The helical trocars were then passed. I made sure that the trocar ran deep to the descending pubic ramus and the tip came out into the vaginal dissection space through the anterior apex of the obturator fossa. It then went into the vaginal dissection space. Here the tip of the needle protruded out through the vaginal incision. The tip of the graft was then attached to the tip of the needle and then the needle was retracted in order to give a transobturator passage of the graft. OPERATIVE REPORT [id number] JUANPABLO AMEZCUA This was done on each side. There is a tab on the midpoint of the graft. This was placed under the mid urethra. The tab was then cut off. The Fonseca catheter was removed and cystoscopy was performed using a 17-Burmese cystoscope. No bladder tumors were seen. No bladder injury was seen. While the cystoscopy was being performed, I filled the bladder to capacity with normal saline. When the cystoscope was removed, irrigation fluid came out per the urethra. I would gradually increase the tension on the sling until no further leakage per the urethra was observed. I did put suprapubic pressure manually and I could still elicit a little tiny bit of leakage, but I left it at this point because I did not want to make it overly tight and put her into urinary retention. At this point, the clear plastic sheath material from each of the graft arms were removed entirely. The graft arms were then allowed to withdraw into the subcutaneous plane from the stab incisions. The stab incisions in the groins were closed with simple interrupted 3-0 Vicryl. The vaginal wound was irrigated out using normal saline. Closure was performed using a running 4-0 Monocryl. The Fonseca catheter was inserted temporarily to drain the bladder part way and then the catheter was removed. Once the vaginal incision was fully closed, then vaginal packing consisting of Kerlix infiltrated with estrogen cream was placed into the vagina. This will be removed prior to her going home today. The stay sutures for the labia majora were cut and removed entirely. I will see the patient in followup next week. TRANSINT:[id number] Voice Confirmation ID: [id number] DOCUMENT ID: [id number] RAMA FREITAS MD at 0919 CC: [id number] DICTATION DATE: 06/29/19 163 ACCOUNTS RECEIVABLE SPECIALIST: 06/30/[address] [facility] 06/29/19 [place] [id number] [place] [id number]
== END 2019-06-29 19:00 | disposition home or self-care (01) ==
LOC: D.OPS 10:35
PROVIDERS: Anesthesiology; ATTEND Urology
DX: N30.01 Acute cystitis with hematuria (principal); N39.3 Stress incontinence (female) (male); J44.9 Chronic obstructive pulmonary disease, unspecified; I10 Essential (primary) hypertension; E06.9 Thyroiditis, unspecified

== ENCOUNTER → 2019-08-18 14:35 | Outpatient (CLI) | payer MEDICARE ==
[2019-06-29 12:34] VITALS: BMI 51.2
== END | disposition home or self-care (01) ==
LOC: D.LABREF 14:35
PROVIDERS: ATTEND Urology
DX: R82.90 Unspecified abnormal findings in urine (principal); R31.9 Hematuria, unspecified

== ENCOUNTER → 2019-09-14 10:12 | Outpatient (CLI) | payer MEDICARE ==
[2019-06-29 12:34] VITALS: BMI 51.2
== END | disposition home or self-care (01) ==
LOC: D.MRI 10:12
PROVIDERS: ATTEND Clinical Nurse Specialist Family Health
DX: M25.561 Pain in right knee (principal)

== ENCOUNTER → 2020-10-14 08:36 | Day surgery (SDC) | payer MEDICARE ==
[2019-06-29 12:34] VITALS: BMI 51.2
--- NOTE | 2020-10-11 14:09 | NUR ---
CONFIRMED PT APPT FOR WEDNESDAY
--- NOTE | ~2020-10-14 | HEMODYNAMI ---
PATIENT:JUANPABLO AMEZCUA MEDICAL RECORD: [id number] : 67 [id number] ADMISSION DATE: 10/14/20 Generatedon:19:19 Patient name: JUANPABLO AMEZCUA Patient #: [id number] SSN: : 1965 Date of study: 10/14/2020 Page: Of Hemodynamic Procedure Report Patient Data Patient Demographics Procedure consent was obtained First Name: JUANPABLO Gender: Female Last Name: SEVEN : 1965 Patient #: [id number] Age: 55 year(s) Race: Unknown Additional ID: [id number] Contact details Address: [address] [place] [address] State: [place] City: [place] Zip code: [address] Admission Admission Data Admission Date: 10/14/2020 Admission Time: 8:36 Procedure Procedure Types Cath Procedure Peripheral Cath Diagnostic Procedure Miscellaneous Aspiration/Injection (Joint) Procedure Description Procedure Date Procedure Date: 10/14/2020 Procedure Start Time: 9:09 Procedure Staff Name Function Cristian Silva MD Performing Physician Rohan Blackwell RT Monitor Procedure Data Cath Procedure Fluoroscopy Diagnostic fluoroscopy Total fluoroscopy Time: 0.4 time: 0.4 min min Diagnostic fluoroscopy Total fluoroscopy dose: 21 dose: 21 mGy mGy Hemodynamics Rest Pre Cath Intra NCS Post Cath Procedure Log Time Note 9:06:26 Rohan Blackwell RT (R) (CV) sent for patient. Start room use. 9:06:33 Patient received from Other to IR Alert and oriented. Tansferred to table in Supine position. 9:06:36 Signed procedure consent form obtained from patient. 9:06:38 Full Disclosure recording started 9:06:39 Pre-op teaching completed and patient verbalized understanding. 9:06:40 Pre-procedure instructions explained to patient. 9:06:54 SAFE-T PLUS MYELOGRAM TRAY opened to sterile field. 9:07:42 Is patient on blood thinner?No 9:07:54 PT ALLERGIC TO CODIENE 9:08:09 Right Hip was prepped with betadine and draped in sterile fashion. 9:09:15 Physician arrived 9:09:16 --------ALL STOP TIME OUT------ 9:09:19 Right groin site verified by team. 9:09:32 Sedation plan: Local Anesthetic Medication:Lidocaine 9:09:52 Procedure started. 9:09:59 Local anesthetic to Right Hip with Lidocaine 1% by Cristian Silva MD.INITIAL ACCESS ONLY 9:17:27 Procedure ended.(Physican Out) 9:18:31 Fluoroscopy time 00.40 minutes. 9:18:36 Fluoroscopy dose: 21 mGy 9:18:36 Flurop Dose total: 21 9:18:50 BANDAIDE APPLIED SITE STABLE PT SENT HOME Device Usage Item Name Manufacture Quantity Catalog Hospital Part Current Minimal Lot# / Number Charge Number Stock Stock Serial# Code SAFE-T CareFusion 1 [id number] PLUS MYELOGRAM TRAY Signature Audit [place] Stage Time Signature Unsigned Intra-Procedure 10/14/2020 Rohan 9:19:12 AM Rishi RT (R) (CV) [facility] [address] [place] [address]
== END | disposition home or self-care (01) ==
LOC: D.SP 08:36 → D.RAD 09:00 → D.SP 09:00
PROVIDERS: ATTEND Clinical Nurse Specialist Family Health
DX: M16.11 Unilateral primary osteoarthritis, right hip (principal)

== ENCOUNTER → 2020-10-18 07:24 | Day surgery (SDC) | payer MEDICARE, MEDICAID ==
[2019-06-29 12:34] VITALS: BMI 51.2
--- NOTE | ~2020-10-18 | HEMODYNAMI ---
PATIENT:JUANPABLO AMEZCUA MEDICAL RECORD: [id number] : 67 [id number] ADMISSION DATE: 10/18/20 Generatedon:18:28 Patient name: JUANPABLO AMEZCUA Patient #: [id number] SSN: : 1965 Date of study: 10/18/2020 Page: Of Hemodynamic Procedure Report Patient Data Patient Demographics Procedure consent was obtained First Name: JUANPABLO Gender: Female Last Name: SEVEN : 1965 Patient #: [id number] Age: 55 year(s) Race: Unknown Additional ID: [id number] Contact details [address]: [address] [place] [address] State: [place] City: [place] Zip code: [address] Admission Admission Data Admission Date: 10/18/2020 Admission Time: 7:24 Procedure Procedure Types Cath Procedure Peripheral Cath Diagnostic Procedure Miscellaneous Aspiration/Injection (Joint) Procedure Description Procedure Date Procedure Date: 10/18/2020 Procedure Start Time: 8:03 Procedure Staff Name Function Malvin Campos MD Performing Physician Rohan Blackwell RT Monitor Annabelle Luna RT Monitor Procedure Data Cath Procedure Fluoroscopy Diagnostic fluoroscopy Total fluoroscopy Time: 0.8 time: 0.8 min min Diagnostic fluoroscopy Total fluoroscopy dose: 54 dose: 54 mGy mGy Contrast Material Contrast Material Type Amount (ml) Isovue 200 2 Hemodynamics Rest Pre Cath Intra NCS Post Cath Procedure Log Time Note 7:55:02 Rohan Blackwell RT (R) (CV) sent for patient. Start room use. 7:55:10 Time tracking: Regular hours (M-F 7:00 - 5:00) 7:55:16 Patient received from Other to IR Alert and oriented. Tansferred to table in Supine position. 7:55:19 Signed procedure consent form obtained from patient. 7:55:21 Correct patient and procedure confirmed by team. 7:55:36 SAFE-T PLUS MYELOGRAM TRAY opened to sterile field. 7:55:58 Pre-procedure instructions explained to patient. 7:55:59 Pre-op teaching completed and patient verbalized understanding. 7:56:09 PT ALLERGIC TO CODIENE 7:56:12 Is patient on blood thinner?No 7:56:21 Left Hip was prepped with betadine and draped in sterile fashion. 8:02:29 Physician arrived 8:02:30 --------ALL STOP TIME OUT------ 8:02:30 Final Timeout: patient, procedure, and site verified with staff and physician. All members of the team are in agreement. 8:02:33 Left groin site verified by team. 8:02:41 Sedation plan: Local Anesthetic Medication:Lidocaine 8:02:57 Procedure started. 8:02:57 Full Disclosure recording started 8:03:06 Local anesthetic to Left Hip with Lidocaine 1% by Malvin Campos MD.INITIAL ACCESS ONLY 8:19:38 Procedure ended.(Physican Out) 8:23:47 Fluoroscopy time 00.80 minutes. 8:23:53 Fluoroscopy dose: 54 mGy 8:23:53 Flurop Dose total: 54 8:23:58 Contrast amount:Isovue 200 2ml. 8:27:45 SITE STABLE BANDAIDE APPLIED PT SENT HOME Device Usage Item Name Manufacture Quantity Catalog Hospital Part Current Minimal Lot# / Number Charge Number Stock Stock Serial# Code SAFE-T CareFusion 1 [id number] PLUS MYELOGRAM TRAY Signature Audit [place] Stage Time Signature Unsigned Intra-Procedure 10/18/2020 Rohan 8:28:45 AM [facility] RT (R) (CV) [place] [id number] [place] [address]
== END | disposition home or self-care (01) ==
LOC: D.SP 07:24 → D.RAD 07:24
PROVIDERS: ATTEND Clinical Nurse Specialist Family Health
DX: M16.12 Unilateral primary osteoarthritis, left hip (principal)

== ENCOUNTER → 2020-11-07 07:59 | Outpatient (CLI) | payer MEDICARE, MEDICAID ==
[2019-06-29 12:34] VITALS: BMI 51.2
== END | disposition home or self-care (01) ==
LOC: D.HCCARDIO 07:59
PROVIDERS: ATTEND Internal Medicine Cardiovascular Disease
DX: R07.9 Chest pain, unspecified (principal); R06.00 Dyspnea, unspecified

== ENCOUNTER 2020-12-12 07:04 | Day surgery (SDC) | payer MEDICARE, MEDICAID ==
[~2020-12-12] VITALS: Ht 175.3 cm; Wt 180.1 kg
--- NOTE | ~2020-12-12 | HEMODYNAMI ---
PATIENT:JUANPABLO AMEZCUA MEDICAL RECORD: [id number] : 67 LOCATION:[facility] ADMISSION DATE: 12/12/20 Generatedon:110:10 Patient name: JUANPABLO AMEZCUA Patient #: [id number] SSN: : 1965 Date of study: 12/12/2020 Page: Of Hemodynamic Procedure Report Patient Data Patient Demographics Procedure consent was obtained First Name: JUANPABLO Gender: Female Last Name: SEVEN : 1965 Patient #: [id number] Age: 55 year(s) Race: Unknown Additional ID: [id number] Contact details Address: [address] [place] [address] State: [place] City: [place] Zip code: [address] Past Medical History Performed procedures and imaging results Date Procedure Procedure Results Comments Stress testing Positive->Intermediate with SPECT MPI risk History of disease Date Diagnosis Comments Peripheral vascular disease->Surgery or PCI Allergies Allergen Reaction Date Comments Reported Codeine 12/12/2020 Admission Admission Data Admission Date: 12/12/2020 Admission Time: 7:04 Arrival Date: 12/12/2020 Arrival Time: 0:00 Height (in.): 68 BSA: 2.73 (m2) Height (cm.): 172.72 BMI: 60.34 (kg/m2) Weight (lbs.): 396.83 Weight (kg.): 180 Lab Results Lab Result Date: 12/12/2020 Lab Result Time: 0:00 Biochemistry Name Units Result Min Max BUN mg/dl 18 --(---*)-- 7 18 Creatinine mg/dl 1 --(--*-)-- 0.6 1.3 eGFR ml/min 61.37696 *-(----)-- 90 120 NONAFRICAN CBC Name Units Result Min Max Hematocrit % 38.2 *-(----)-- 42 54 Hemoglobin g/dl 12.6 -*(----)-- 13.5 17.5 Procedure Procedure Types Cath Procedure Diagnostic Procedure LHC LHC w/Coronaries Sedation Charges Moderate Sedation 10-24 minutes Procedure Description Procedure Date Procedure Date: 12/12/2020 Procedure Start Time: 9:55 Procedure End Time: 10:08 Procedure Staff Name Function Jose Alfredo Sarmiento MD Performing Physician Alla Grant RT Monitor Angelique Cuenca RT Scrub Aung Peraza RN Nurse Procedure Data Cath Procedure Fluoroscopy Diagnostic fluoroscopy Total fluoroscopy Time: 1.6 time: 1.6 min min Diagnostic fluoroscopy Total fluoroscopy dose: 931 dose: 931 mGy mGy Contrast Material Contrast Material Type Amount (ml) Isovue 300 54 Entry Location Entry Primary Successful Side Size Upsize Upsize Entry Closure Andrew ccessful Closure Location (Fr) 1 (Fr) 2 (Fr) Remarks Device Remarks Radial Right 6 Fr Mechanical artery Short Compression Estimated blood loss: 5 ml Diagnostic catheters Device Type Used For End Catheter Placement DIAGNOSTIC [place] 110cm 5 Procedure Fr catheter ([id number]) Procedure Complications No complications Procedure Medications Medication Administration Route Dosage 0.9% NaCl I.V. 100 ml/hr Oxygen etCO2 Nasal cannula 2 l/min Heparin Flush Bag added to field 2 bags (1000units/500ml NS) Lidocaine 2% added to field 20 Radial Cocktail added to field 1 syringe (Verapamil 2mg/Nitro 400mcg/Heparin 1500units) Versed I.V. 1 mg Fentanyl I.V. 50 mcg Versed I.V. 1 mg Fentanyl I.V. 50 mcg Radial Cocktail I.A. 1 syringe (Verapamil 2mg/Nitro 400mcg/Heparin 1500units) Versed I.V. 2 mg Hemodynamics Rest BSA: 2.73 (m2) HGB: 12.6 (g/dl) O2 Consumption: Estimated: 273.57 (ml/min) O2 Co nsumption indexed: Estimated:100.21 (ml/min/m) Heart Rate: 80 (bpm) Pressure Samples Time Site Value (mmHg) Purpose Heart Use Rate(bpm) 9:59 LV 109/19,20 Snapshot 88 Gradients Valve Time Site Site Mean SEP/DFP Peak To Heart Use 1 2 (mmHg) (sec/min) Peak Rate (mmHg) (bpm) Aortic 10:00 LV AO 93 Snapshots Pre Cath Intra NCS Post Cath Vital Signs Time Heart Resp SPO2 etCO2 NIBP (mmHg) Rhythm Pain Sedation Rate (ipm) (%) (mmHg) Status Level (bpm) 9:37:03 79 12 93 0 150/80(122) NSR 0 (11) 10(A) , No pain 9:41:13 77 17 91 0 137/85(107) NSR 0 (11) 10(A) , No pain 9:45:19 77 14 92 0 144/84(105) NSR 0 (11) 10(A) , No pain 9:49:27 79 13 90 0 143/84(112) NSR 0 (11) 10(A) , No pain 9:53:35 80 13 92 0 148/81(106) NSR 0 (11) 10(A) , No pain 9:57:45 81 18 92 0 150/84(116) NSR 0 (11) 10(A) , No pain 10:01:56 85 14 91 0 136/76(101) NSR 0 (11) 10(A) , No pain 10:06:49 81 15 93 0 149/82(109) NSR 0 (11) 10(A) , No pain Medications Time Medication Route Dose Verified Delivered Reason Notes Effectiveness by by 9:35:03 0.9% NaCl I.V. 100 Aung Aung Per ml/hr Karmen Peraza physician RN RN 9:35:13 Oxygen etCO2 2 l/min Aung Aung for low 02 Nasal Lorigan Lorigan sats cannula RN RN 9:35:24 Heparin Flush added 2 bags Aung Aung used for Bag to Lorigan Lorigan procedure (1000units/500ml [facility] RN RN NS) 9:35:35 Lidocaine 2% added 20ml Aung Aung for local to vial Lorigan Lorigan anesthetic RN RN 9:35:55 Radial Cocktail added 1 Aung Aung used for (Verapamil to syringe Lorigan Lorigan procedure 2mg/Nitro field RN RN 400mcg/Heparin 1500units) 9:50:57 Versed I.V. 1 mg Aung Aung for sedation Karmen Peraza RN RN 9:51:09 Fentanyl I.V. 50 mcg Aung Aung for sedation Karmen Peraza RN RN 9:52:48 Versed I.V. 1 mg Aung Aung for sedation Karmen Peraza RN RN 9:53:01 Fentanyl I.V. 50 mcg Aung Aung for sedation Lorigan Lorigan RN RN 9:57:18 Radial Cocktail I.A. 1 Aung Jose Alfredo for (Verapamil syringe Karmen Sarmiento MD vasodilation 2mg/Nitro RN 400mcg/Heparin 1500units) 9:57:29 Versed I.V. 2 mg Aung Horan for sedation Karmen Peraza RN [employer] Log Time Note 8:59:18 Informed consent obtained and on chart 9:00:36 Procedure Status Elective Heart Cath (OP). 9:00:37 Time tracking: Regular hours (M-F 7:00 - 5:00) 9:00:40 Plan of Care:Hemodynamics will remain stable., Cardiac rhythm will remain stable., Comfort level will be maintained., Respiratory function will remain adequate., Patient/ family verbilizes understanding of procedure., Procedure tolerated without complication., Recovers from procedure without complications.. 9:03:51 H&P Date Dictated: 12/03/2020 Within 30 days and on chart., H&P Addendum completed by physician on day of procedure. (MUST COMPLETE FOR ALL OUTPATIENTS). 9:04:01 Patient allergic to Codeine 9:05:43 Patient Weight : 396.83 lbs 9:05:58 Patient Height : 68 inches 9:06:02 Arrival Date: 12/12/2020 12:00:00 AM 9:18:20 Lab Result : Hemoglobin 12.6 g/dl 9:18:20 Lab Result : eGFR NONAFRICAN 61.88936 ml/min 9:18:20 Lab Result : BUN 18 mg/dl 9:18:20 Lab Result : Creatinine 1 mg/dl 9:18:20 Lab Result : Hematocrit 38.2 % 9:18:26 Aung Peraza RN sent for patient. Start room use. 9:26:27 Patient received from Pre/Post Procedure Room to CCL 2 Alert and oriented. Tansferred to table in Supine position. 9:26:28 Warm blankets applied, and nirali hugger turned on for patient comfort. 9:26:28 Correct patient and procedure confirmed by team. 9:26:32 ECG and BP/O2 sat monitors applied to patient. 9:35:03 0.9% NaCl 100 ml/hr I.V. was administered by Aung Peraza RN; Per physician; Verbal order read back and verified. 9:35:13 Oxygen 2 l/min etCO2 Nasal cannula was administered by Aung Peraza RN; for low 02 sats; Verbal order read back and verified. 9:35:24 Heparin Flush Bag (1000units/500ml NS) 2 bags added to field was administered by Aung Peraza RN; used for procedure; Verbal order read back and verified. 9:35:35 Lidocaine 2% 20ml vial added to field was administered by Aung Peraza RN; for local anesthetic; Verbal order read back and verified. 9:35:55 Radial Cocktail (Verapamil 2mg/Nitro 400mcg/Heparin 1500units) 1 syringe added to field was administered by Aung Peraza RN; used for procedure; Verbal order read back and verified. 9:35:59 Vital chart was started 9:36:54 Baseline sample Acquired. 9:36:57 Rhythm: sinus rhythm 9:36:58 Full Disclosure recording started 9:37:03 Pre-procedure instructions explained to patient. 9:37:03 Pre-op teaching completed and patient verbalized understanding. 9:37:05 Family in patients room. 9:37:06 Patient NPO since Midnight. 9:37:09 Is patient on blood thinner?Yes 9:37:12 ACC The patient was administered the following blood thiners within the last 24 hours: Eliquis 9:37:14 Patient diabetic? No. 9:37:16 Patient not . Patient has had tubal. 9:37:18 Previous problem with sedation/anesthesia? No ? 9:37:19 Snore? Yes 9:37:20 Sleep apnea? Yes 9:37:21 Deviated septum? No 9:37:22 Opens mouth fully? Yes 9:37:23 Sticks out tongue? Yes 9:37:26 Airway obstruction? Yes COPD 9:37:30 Dentures? Yes IN 9:37:35 Pre procedure: right dorsailis pedis pulse 1+ Palpable, but thready & weak; easily obliterated 9:37:38 Modified Galindo's test Ulnar < 7 seconds 9:37:40 Patient pain scale 0/10 ?. 9:37:46 IV patent on arrival in left hand with 0.9% NaCl at [facility]. 9:37:47 Lab results completed and on chart. 9:37:51 Right Radial & Right Groin area was prepped with chlora-prep and draped in sterile fashion 9:37:51 Alarms reviewed by R. N. 9:37:52 Sharps counted by scrub and verified by R.N. 9:37:54 Use device set Radial Dx or PCI 9:37:55 ACIST Syringe (12194) opened to sterile field. 9:37:56 Medline Cath Pack ([id number]) opened to sterile field. 9:37:56 Bag Decanter (2002S) opened to sterile field. 9:37:57 ACIST Hand Control (78763) opened to sterile field. 9:37:57 ACIST Manifold (58434) opened to sterile field. 9:37:58 Tegaderm 4 x 4 (1626W) opened to sterile field. 9:38:05 MBrace Wrist Support ([id number]) opened to sterile field. 9:38:06 NEEDLE Cook 21G 4cm Radial (Q44597) opened to sterile field. 9:38:06 EMERALD Guide Wire (502-808) opened to sterile field. 9:38:07 SHEATH 6FR RAIN (1172665) opened to sterile field. 9:40:01 Stress Test: yes; abnormal ANTERIOR 9:49:37 --------ALL STOP TIME OUT------ 9:49:43 Final Timeout: patient, procedure, and site verified with staff and physician. All members of the team are in agreement. 9:49:45 Right Radial & Right Groin site verified by team. 9:49:48 Fire Safety Assessment: A--An alcohol-based skin anteseptic being used preoperatively., C--Open oxygen or nitrous oxide is being used., D--An ESU, laser, or fiber-optic light is being used. 9:49:56 Physical assessment completed. ASA score P 2 - A patient with mild systemic disease as per Jose Alfredo Sarmiento MD. 9:50:00 2) 60-89 Mildly reduced kidney function, and other findings (as for stage 1) point to kidney disease. 9:50:03 Maximum allowable contrast dose (3.7 X eGFR X 0.75)169 ml. 9:50:08 Sedation plan: IV Moderate Sedation Medication:Versed, Fentanyl 9:50:57 Versed 1 mg I.V. was administered by Aung Peraza RN; for sedation; Verbal order read back and verified. 9:51:09 Fentanyl 50 mcg I.V. was administered by Aung Peraza RN; for sedation; Verbal order read back and verified. 9:52:48 Versed 1 mg I.V. was administered by Aung Peraza RN; for sedation; Verbal order read back and verified. 9:53:01 Fentanyl 50 mcg I.V. was administered by Aung Peraza RN; for sedation; Verbal order read back and verified. 9:55:52 Procedure started. 9:55:57 Local anesthetic to right radial artery with Lidocaine 2% by Jose Alfredo Sarmiento MD.INITIAL ACCESS ONLY 9:57:18 Radial Cocktail (Verapamil 2mg/Nitro 400mcg/Heparin 1500units) 1 syringe I.A. was administered by Jose Alfredo Sarmiento MD; for vasodilation; Verbal order read back and verified. 9:57:29 Versed 2 mg I.V. was administered by Aung Peraza RN; for sedation; Verbal order read back and verified. 9:57:37 A 6 Fr Short sheath was inserted into the Right Radial artery 9:58:23 A DIAGNOSTIC [place] 110cm 5 Fr catheter ([id number]) was advanced over the wire and used for Procedure. 9:59:21 LV gram done using GRIDER 9:59:24 Injector settings: Ml/sec: 5, Volume: 15, 9:59:39 LV hemodynamics recorded. 9:59:41 LV hemodynamics recorded. 9:59:55 EF : 50 % 10:01:31 LCA angiography performed. 10:02:27 RCA angiography performed. 10:03:11 Catheter removed. 10:03:39 Procedure ended.(Physican Out) 10:03:48 ZEPHYR LARGE TR BAND (394890) opened to sterile field. 10:04:03 Sheath removed intact; hemostasis achieved with Mechanical Compression to the Right Radial artery. 10:04:14 Contrast amount:Isovue 300 54ml. 10:04:44 Fluoroscopy time 01.60 minutes. 10:04:47 Fluoroscopy dose: 931 mGy 10:04:47 Flurop Dose total: 931 10:04:51 Dose Area Product 43015 mGy/cm. 10:04:54 Maximum allowable dose exceeded? No. 10:04:55 Sharps counted by scrub and verified by R.N. 10:04:56 [place] band inflated with 10cc of air. 10:04:58 Insertion/operative site no bleeding no hematoma. 10:05:03 Post-procedure physical assessment completed. ASA score P 2 - A patient with mild systemic disease as per Jose Alfredo Sarmiento MD. 10:05:06 Post procedure rhythm: sinus rhythm 10:05:09 Estimated blood loss: 5 ml 10:05:11 Post procedure instruction explained to patient.Patient verbalizes understanding. 10:05:11 Patient needs reinforcement of post procedure teaching. 10:08:06 Procedure type changed to Cath procedure, Diagnostic procedure, LHC, [facility] w/Coronaries, Sedation Charges, Moderate Sedation 10-24 minutes 10:08:20 Procedure and supply charges have been captured, reviewed, submitted and are correct. 10:08:23 Procedure Complication : No complications 10:08:25 Vital chart was stopped 10:08:28 [facility] Findings: mild to moderate CAD (<70%) 10:08:30 Operative report dictated upon procedure completion. 10:08:30 See physician's report for complete and final results. 10:08:31 Report given to Pre/Post Procedure Room. 10:08:34 Patient transfered to Pre/Post Procedure Room with Bed. 10:08:38 Procedure ended. 10:08:38 Full Disclosure recording stopped 10:08:44 End room use (Document Last) Device Usage Item Name Manufacture Quantity Catalog Hospital Part Current Minima l Lot# / Number Charge Number Stock Stock Serial# Code ACIST Acist 1 78183 [id number] 225326 [id number] 20 Syringe Medical (61831) Systems Inc Medline Medline 1 [id number] 266588 55013 492862 5 Cath Pack ([id number]) Bag Microtek 1 759726 92638 669823 5 Decanter Medical Inc. () ACIST Hand Acist 1 81803 873709 874645 780749 5 Control Medical (06578) Systems Inc ACIST Acist 1 16129 923396 583646 643867 5 Manifold Medical (10795) Systems Inc Tegaderm 4 3M 1 1626W 906064 534925 301052 5 x 4 (1626W) MBrace Advanced 1 140-0250-00 441667 80171 957667 5 Wrist Vascular Support Dynamics ([id number]) NEEDLE Cook Cook Medical 1 [id number] 785345 173140 793101 5 21G 4cm Radial (K96850) EMERALD Cardinal 1 762-209 136265 813307 133498 5 Guide Wire Health (223-037) SHEATH 6FR Cardinal 1 7426564 944267 9116267 582537 5 RAIN Health (1159632) DIAGNOSTIC Terumo 1 40-2413 136470 613002 763750 5 [place] 110cm 5 Fr catheter (874358) ZEPHYR Cardinal 1 427360 254711 4035670 510045 5 LARGE TR Health BAND (981022) Signature Audit [place] Stage Time Signature Unsigned Intra-Procedure 12/12/2020 Alla Grant 10:09:50 AM RT(R) Intra-Procedure 12/12/2020 Aung 10:10:28 AM Karmen RN Intra-Procedure 12/12/2020 Jose Alfredo Sarmiento MD 10:10:51 AM Signatures Performing Physician : Signature : Jose Alfredo Sarmiento MD Date : Time : Monitor : Alla Grant Signature : RT Date : Time : Nurse : Aung Peraza Signature : RN Date : Time : [facility] [address] [place] [address]
[2020-12-12] MEDS ORDERED: FUROSEMIDE40 MG PO (08:33)
[2020-12-12] MEDS ORDERED: SYNTHROID175 MCG PO (08:34)
[2020-12-12] MEDS ORDERED: BUPROPION XL300 MG PO (08:35)
[2020-12-12] MEDS ORDERED: K-DUR20 MEQ PO (08:35)
[2020-12-12] MEDS ORDERED: IBUPROFEN600 MG PO (08:36)
[2020-12-12] MEDS ORDERED: ZOLOFT100 MG PO (08:36)
[2020-12-12] MEDS ORDERED: KENALOG 0.1 % 115 GM TOPICAL (08:37)
[2020-12-12 08:49] VITALS: BP 121/72; Ht 175.3 cm; Wt 180.1 kg
[2020-12-12 08:51] LABS: BASOPHILS 0.9 % (0-2); HEMATOCRIT 38.2 % (36.0-48.0); HEMOGLOBIN 12.6 g/dL (12-16); LYMPHOCYTES 17.9 % (15-50); MCH 29.8 pg (26.0-34.0); MCV 90.5 fL (80.0-100.0); MEAN PLATELET VOLUME 7.2 fL (7.4-10.4); MONOCYTES 4.6 % (2-11); NEUTROPHILS 74.6 % (40-80); PLATELET COUNT 341 10x3/uL (130-400); RBC 4.22 10x6/uL (4.00-5.40); RDW 15.2 % (11.5-14.5); WBC 10.4 10x3/uL (4.8-10.8)
[2020-12-12 09:07] LABS: ANION GAP 13.3 mmol/L (8-16); CALCIUM 9.2 mg/dL (8.5-10.1); CARBON DIOXIDE 27.1 mmol/L (21.0-32.0); CHOL - HDL RATIO 5.5 ratio (2.3-4.1); LDL-HDL RATIO 2.7 ratio (1.5-3.5); POTASSIUM - SERUM 4.4 mmol/L (3.5-5.1)
--- NOTE | 2020-12-12 10:19 | NUR ---
PT ARRIVED BY STRETCHER. PLACED ON MONITORS. ASSESSMENT COMPLETED. VSS AT THIS TIME. CALL LIGHT WITHIN REACH.
--- NOTE | 2020-12-12 10:35 | NUR ---
PT AWAKE AND ALERT. DENIES NAUSEA/PAIN. RIGHT WRIST Z BAND IN PLACE. NO BLEEDING/HEMATOMA NOTED. PT SET UP WITH SANDWICH AND DRINK. FAMILY AT BEDSIDE. NO NEEDS AT THIS TIME. CALL LIGHT WITHIN REACH.
--- NOTE | 2020-12-12 11:05 | NUR ---
PT RESTING COMFORTABLY. AWAKE AND ALERT. RIGHT WRIST DRESSING C/D/I. NO S/S OF HEMATOMA NOTED. NO NEEDS AT THIS TIME. FAMILY AT BEDSIDE.
--- NOTE | 2020-12-12 11:30 | NUR ---
2cc OF AIR REMOVED FROM Z BAND. NO BLEEDING/HEMATOMA NOTED. TOLERATING WELL.
--- NOTE | 2020-12-12 11:45 | NUR ---
3cc OF AIR REMOVED FROM Z BAND. NO BLEEDING/HEMATOMA NOTED. CALL LIGHT WITHIN REACH. VSS.
--- NOTE | 2020-12-12 11:55 | NUR ---
PT UP TO BEDSIDE COMMODE. VOIDED 400cc OF JOSSIE COLORED URINE WITHOUT DIFFICULTY. DID SELF IRINEO-CARE. BACK TO BED.
--- NOTE | 2020-12-12 12:00 | NUR ---
3cc OF AIR REMOVED FROM Z BAND. NO BLEEDING/HEMATOMA NOTED. CALL LIGTH WITHIN REACH. VSS AT THIS TIME.
--- NOTE | 2020-12-12 12:15 | NUR ---
Z BAND REMOVED AND DRESSING APPLIED. RIGHT WRIST BRACE IN PLACE. NO BLEEDING/HEMATOMA NOTED. PIV D/C'D WITH CATH TIP INTACT. TOLERATED WELL. PT INSTRUCTED TO GET UP AND DRESSED AT THIS TIME. FAMILY AT BEDSIDE TO ASSIST. NO ASSISTANCE NEEDED. CALL LIGHT LEFT WITHIN REACH.
--- NOTE | 2020-12-12 12:25 | NUR ---
DISCUSSED DISCHARGE INSTRUCTIONS WITH PT. SHE VOICED UNDERSTANDING.
--- NOTE | 2020-12-12 12:30 | NUR ---
PT TAKEN OUT TO VEHICLE BY WHEELCHAIR. HAS HOME OXYGEN ON. NO S/S OF DISTRESS NOTED. ALL BELONGINGS AND PAPERWORK IN HAND. RIGHT WRIST DRESSING C/D/I. NO S/S OF HEMATOMA NOTED.
== END 2020-12-12 12:30 | disposition home or self-care (01) ==
LOC: D.CATH 07:04
PROVIDERS: ATTEND Internal Medicine Cardiovascular Disease
DX: I20.0 Unstable angina (principal); I10 Essential (primary) hypertension; E78.5 Hyperlipidemia, unspecified; R07.9 Chest pain, unspecified; E66.01 Morbid (severe) obesity due to excess calories

== ENCOUNTER 2020-12-16 19:27 | Observation (INO) | payer MEDICARE, MEDICAID ==
[~2020-12-16] VITALS: Ht 172.7 cm; Wt 183.3 kg
[~2020-12-16 19:27] MED LIST changes: +BUPROPION XL300 MG PO; +FUROSEMIDE40 MG PO; +KENALOG 0.1 % 115 GM TOPICAL; +SYNTHROID175 MCG PO; +ZOLOFT100 MG PO
[2020-12-16 20:05] LABS: BASOPHILS 1.3 % (0-2); EOSINOPHILS 3.8 % (0-7); HEMATOCRIT 37.7 % (36.0-48.0); HEMOGLOBIN 12.5 g/dL (12-16); LYMPHOCYTES 25.1 % (15-50); MCH 29.8 pg (26.0-34.0); MCHC 33.1 g/dL (31.0-37.0); MCV 90.1 fL (80.0-100.0); MEAN PLATELET VOLUME 7.7 fL (7.4-10.4); MONOCYTES 5.8 % (2-11); PLATELET COUNT 315 10x3/uL (130-400); RBC 4.19 10x6/uL (4.00-5.40); RDW 15.6 % (11.5-14.5)
[2020-12-16 20:06] LABS: CALC OSMOLALITY 281 mosm/kg (275-300); CARBON DIOXIDE 28.8 mmol/L (21.0-32.0); CHLORIDE - SERUM 103 mmol/L (98-107); CREATININE - SERUM 0.9 mg/dL (0.6-1.3); GLUCOSE 106 mg/dL (74-106); POTASSIUM - SERUM 4.2 mmol/L (3.5-5.1); SODIUM 141 mmol/L (136-145); UREA NITROGEN 16 mg/dL (7-18); eGFR NON AFRICAN AMERICAN 69 mL/min (90-120)
[2020-12-16 20:19] LABS: ALBUMIN 3.4 g/dL (3.4-5.0); ALKALINE PHOSPHATASE 80 U/L (30-120); ALT (SGPT) 25 U/L (10-68); BILIRUBIN - TOTAL 0.26 mg/dL (0.2-1.3); C-REACTIVE PROTEIN 5.8 mg/dL (0.0-0.9); PRO BNP 166 pg/mL (0-125); PROTEIN - SERUM 7.8 g/dL (6.4-8.2)
[2020-12-16 20:26] LABS: INFLUENZA TYPE A NEGATIVE (NEGATIVE); INFLUENZA TYPE B NEGATIVE (NEGATIVE); SARS-CoV-2 ANTIGEN NEGATIVE- SARS-COV-2 (NEGATIVE)
[2020-12-16 20:28] LABS: TROPONIN-I < 0.017 ng/mL (0.000-0.060)
[2020-12-16 20:35] VITALS: BP 114/62
[2020-12-16 21:35] VITALS: BP 137/59
[2020-12-16 22:35] VITALS: BP 134/65
[2020-12-16 23:50] VITALS: BP 182/59; BMI 61.5
[2020-12-17 00:17] LABS: APTT 33.1 SECONDS (22.8-39.4); INR 1.01 (0.85-1.17); PROTIME 12.3 SECONDS (11.6-15.0)
[2020-12-17] MEDS ORDERED: PROVENTIL/2.5 MG/3 M INH (00:27)
[2020-12-17 00:45] VITALS: BP 128/56
[2020-12-17 04:50] VITALS: BP 122/63
[2020-12-17 06:15] LABS: BASOPHILS 0.4 % (0-2); EOSINOPHILS 0.1 % (0-7); HEMATOCRIT 36.7 % (36.0-48.0); HEMOGLOBIN 12.2 g/dL (12-16); LYMPHOCYTES 11.4 % (15-50); MCH 30.1 pg (26.0-34.0); MCHC 33.3 g/dL (31.0-37.0); MCV 90.7 fL (80.0-100.0); MEAN PLATELET VOLUME 7.8 fL (7.4-10.4); MONOCYTES 1.1 % (2-11); PLATELET COUNT 310 10x3/uL (130-400); RBC 4.05 10x6/uL (4.00-5.40); RDW 15.2 % (11.5-14.5); WBC 8.6 10x3/uL (4.8-10.8)
[2020-12-17 06:34] LABS: ALBUMIN 3.4 g/dL (3.4-5.0); ANION GAP 10.2 mmol/L (8-16); BILIRUBIN - TOTAL 0.25 mg/dL (0.2-1.3); CARBON DIOXIDE 30.2 mmol/L (21.0-32.0); MAGNESIUM - SERUM 2.2 mg/dL (1.8-2.4); POTASSIUM - SERUM 4.4 mmol/L (3.5-5.1); PROTEIN - SERUM 7.9 g/dL (6.4-8.2)
[2020-12-17 09:00] VITALS: BP 106/57
[2020-12-17 12:00] VITALS: BP 111/47
[2020-12-17 13:39] VITALS: Ht 172.7 cm; Wt 183.3 kg
[2020-12-17 20:00] VITALS: BP 138/57
[2020-12-18] VITALS (7 sets, daily range): BP systolic 111–177; BP diastolic 50–71
--- NOTE | 2020-12-18 07:05 | NUR ---
PT LYING IN BED WITH HOB ELEVATED [address] RESP EVEN AND UNLABORED. AAO X4. DENIES NEEDS AT THIS TIME. CLIR. BED IN LOWEST POSIITON. SIDE RAILS X2
[2020-12-18 07:25] LABS: BASOPHILS 0.5 % (0-2); EOSINOPHILS 0.1 % (0-7); HEMATOCRIT 37.1 % (36.0-48.0); HEMOGLOBIN 12.2 g/dL (12-16); LYMPHOCYTES 11.7 % (15-50); MCH 29.7 pg (26.0-34.0); MCHC 32.9 g/dL (31.0-37.0); MCV 90.4 fL (80.0-100.0); MEAN PLATELET VOLUME 7.7 fL (7.4-10.4); NEUTROPHILS 83.7 % (40-80); PLATELET COUNT 329 10x3/uL (130-400); RDW 15.3 % (11.5-14.5)
[2020-12-18 07:38] LABS: ALBUMIN 3.5 g/dL (3.4-5.0); ANION GAP 14.7 mmol/L (8-16); BILIRUBIN - TOTAL 0.36 mg/dL (0.2-1.3); CARBON DIOXIDE 28.3 mmol/L (21.0-32.0); CREATININE - SERUM 0.9 mg/dL (0.6-1.3); MAGNESIUM - SERUM 2.3 mg/dL (1.8-2.4)
[2020-12-18 07:53] LABS: WBC 11.5 10x3/uL (4.8-10.8)
--- NOTE | 2020-12-18 11:46 | NUR ---
OT NOTE: PT IN BED WITH C PAP ON.. REPORTS THAT SHE DID NOT REST VERY WELL LAST NIGHT. ABLE TO PERFORM SUPINE TO SIT WITH MIN ASSIST; AMB TO BATHROOM WITH RW AND SBA.. TRANSFERRED TO CHAIR WITH SBA. ABLE TO PERFORM GROOMING TASKS WITH SET UP; ABLE TO JO B SOCKS FROM BED LEVEL. ALEJANDRA DAVALOS, OTR/L [phone]
--- NOTE | 2020-12-18 13:23 | NUR ---
I have reviewed this patient and I concur with the Shift Assessment completed by the Licensed Practical Nurse today this shift.
[2020-12-19] VITALS: BP 131/61
[2020-12-19 04:00] VITALS: BP 132/64
[2020-12-19 07:21] LABS: BASOPHILS 0.6 % (0-2); EOSINOPHILS 0.1 % (0-7); HEMATOCRIT 38.2 % (36.0-48.0); HEMOGLOBIN 12.3 g/dL (12-16); LYMPHOCYTES 22.9 % (15-50); MCH 29.2 pg (26.0-34.0); MCHC 32.2 g/dL (31.0-37.0); MCV 90.8 fL (80.0-100.0); MEAN PLATELET VOLUME 7.6 fL (7.4-10.4); MONOCYTES 4.4 % (2-11); PLATELET COUNT 335 10x3/uL (130-400); RBC 4.21 10x6/uL (4.00-5.40); RDW 15.3 % (11.5-14.5); WBC 11.4 10x3/uL (4.8-10.8)
[2020-12-19 07:43] LABS: ALBUMIN 3.5 g/dL (3.4-5.0); ANION GAP 13.9 mmol/L (8-16); BILIRUBIN - TOTAL 0.42 mg/dL (0.2-1.3); CALCIUM 8.6 mg/dL (8.5-10.1); CARBON DIOXIDE 26.9 mmol/L (21.0-32.0); MAGNESIUM - SERUM 2.2 mg/dL (1.8-2.4); POTASSIUM - SERUM 3.8 mmol/L (3.5-5.1); PROTEIN - SERUM 7.5 g/dL (6.4-8.2)
--- NOTE | 2020-12-19 08:50 | NUR ---
Lying in bed, awake/alert/oriented, T/R self ad brian, cont of B/B with BRPs per self ad brian, denies pain/other discomfort at this time, call light/phone/water within reach, no s/s of acute distress observed
--- NOTE | 2020-12-19 09:08 | NUR ---
Pt COVID PCR negative, may discontinue COVID Isolation.
[2020-12-19] MEDS ORDERED: IPRAT-ALBUT 0.5-3 ML UPD (09:32)
[2020-12-19] MEDS ORDERED: MUCINEX600 MG PO (09:34)
[2020-12-19] MEDS ORDERED: TESSALON PERLE100 MG PO (09:34)
[2020-12-19] MEDS ORDERED: PULMICORT0.5 MG/21 UPD (09:34)
[2020-12-19] MEDS ORDERED: ADOXA100 MG PO (09:34)
[2020-12-19 11:05] VITALS: BP 119/48
--- NOTE | 2020-12-19 14:00 | NUR ---
Provided written/verbal discharge instructions/education to which pt stated understanding, discontinued IV access/cardiac telemetry monitoring at this time, no s/s of acute distress observed.
--- NOTE | 2020-12-19 14:30 | NUR ---
DC'd home to self care in stable condition via w/c accompanied by hospital staff and family member, no s/s of acute distress observed.
--- NOTE | 2020-12-20 15:11 | EC ---
PATIENT:JUANPABLO AMEZCUA DATE OF SERVICE: 12/16/20 SEX: F MEDICAL RECORD: [id number] DATE OF : 67 LOCATION:D.M2 D.213 AGE OF PATIENT: 55 ADMISSION DATE: 12/16/20 REFERRING PHYSICIAN: INTERPRETING PHYSICIAN: GEORGE CUELLO MD ECHOCARDIOGRAM REPORT ECHO CHARGES 4 ECHO COMPLETE Date: 12/19/20 CLINICAL DIAGNOSIS: CHF ECHOCARDIOGRAPHIC MEASUREMENTS (adult normal given) AC root (d.<3.7cm) 3.7 cm LV Septum d (<1.2 cm> 1.2 cm Valve Excursion 1.6 cm LV Septum (systole) 1.8 cm Left Atria (s.<4.0cm> 4.8 cm LVPW d(<1.2cm) 1.2 cm RV (d.<2.3cm) 4.9 cm LVPW (sytole) 1.5 cm LV diastole(<5.6CM) 5.7 cm MV E-F(>70mm/sec) cm LV systole 3.9 cm LVOT Diameter 2.1 cm MV exc.(>10mm) cm Est.ejection fraction (50-75%) 50 % DOPPLER: LVIT cm/sec A 95 cm/sec E 119 cm/sec LA cm/sec RVSP 32 mmHg LVOT 148 cm/sec AOP1/2T m/s Asc. Ao 216 cm/sec RVOT 110 cm/sec RA 5.5 cm/sec PA 124 cm/sec AV Gradient Peak 18 mmHg AV Mean 8 mmHg AV Area 2.3 cm MV Gradient Peak 7 mmHg MV Mean 2 mmHg MV Area cm COMMENTS: Plaster Maker: Myrna SANDS Service Shop Foreman: 3 Dr. Woo TAPE# Pericardial Effusion N DATE OF SERVICE: CLINICAL INDICATION: CHF. INTERPRETATION: Technically difficult study secondary to body habitus, overall mild global LV contractile dysfunction with ejection fraction of 45% to 50%. FINDINGS: Left atrial chamber mildly dilated. Right atrium and right ventricular chamber is not well visualized, but appears normal. Aortic valve not well visualized, but appears normal. Trace aortic regurgitation. Mitral ECHOCARDIOGRAM REPORT [id number] JUANPABLO AMEZCUA valve appears normal. Trace mitral regurgitation. Tricuspid valve not well visualized, but appears normal. Trace tricuspid regurgitation. No pericardial effusion visualized. IMPRESSION: Technically difficult study secondary to body habitus, overall mild global left ventricular contractile dysfunction with ejection fraction of 45% to 50%. TRANSINT:[id number] Voice Confirmation ID: [id number] DOCUMENT ID: [id number] GEORGE CUELLO MD at 1511 CC: [id number] DICTATION DATE: 12/19/20 1518 [place]: 12/19/20 1619 DIS IN 12/19/20 [place] [id number] [facility], [facility]
== END 2020-12-19 14:30 | disposition home or self-care (01) ==
LOC: D.ER 19:27 → D.M2 22:03 → OBSVTIME 22:03 → D.M2 22:03
PROVIDERS: Family Medicine; ADMIT Family Medicine; ATTEND Family Medicine
DX: J18.9 Pneumonia, unspecified organism (principal); J44.1 Chronic obstructive pulmonary disease with (acute) exacerbation; J96.21 Acute and chronic respiratory failure with hypoxia; I10 Essential (primary) hypertension; Z99.81 Dependence on supplemental oxygen; Z79.01 Long term (current) use of anticoagulants; E78.5 Hyperlipidemia, unspecified; M19.90 Unspecified osteoarthritis, unspecified site; E66.01 Morbid (severe) obesity due to excess calories; F41.8 Other specified anxiety disorders; Z68.44 Body mass index [BMI] 60.0-69.9, adult; G62.9 Polyneuropathy, unspecified; G47.33 Obstructive sleep apnea (adult) (pediatric); J20.9 Acute bronchitis, unspecified; L40.9 Psoriasis, unspecified

== ENCOUNTER → 2021-01-01 08:55 | Outpatient (CLI) | payer MEDICARE, MEDICAID ==
[2020-12-17 13:39] VITALS: BMI 61.4
[~2021-01-01 08:55] MED LIST changes: +ADOXA100 MG PO; +IPRAT-ALBUT 0.5-3 ML UPD; +MUCINEX600 MG PO; +PROVENTIL/2.5 MG/3 M INH; +PULMICORT0.5 MG/21 UPD
== END | disposition home or self-care (01) ==
LOC: D.MRI 08:55
PROVIDERS: ATTEND Nurse Practitioner
DX: M25.552 Pain in left hip (principal)

== ENCOUNTER → 2021-01-14 10:12 | Outpatient (CLI) | payer MEDICARE, MEDICAID ==
[2020-12-17 13:39] VITALS: BMI 61.4
== END | disposition home or self-care (01) ==
LOC: D.MRI 10:12
PROVIDERS: ATTEND Clinical Nurse Specialist Family Health
DX: M54.16 Radiculopathy, lumbar region (principal)